=== PATIENT | male | born 1950 | race Caucasian/White ===

== ENCOUNTER 2019-10-12 00:30 | Day surgery (SDC) | payer MEDICARE, SELFPAY ==
[2019-10-11 15:01] VITALS: BMI 35.5
[2019-10-12] VITALS (8 sets, daily range): BP systolic 114–143; BP diastolic 64–93; PULSE 75–117; RESP 12–20; TEMP 36.1–37.6; O2SAT 94–99
--- NOTE | 2019-10-12 08:00 | ECG_ITS ---
Measurements Intervals [place] Rate: 93 P: 42 MI: 166 QRS: -26 QRSD: 101 T: 71 QT: 355 QTc: 442 Interpretive Statements SINUS RHYTHM ATRIAL PREMATURE COMPLEX BORDERLINE T WAVE ABNORMALITY- LATERAL LEADS BORDERLINE ECG Electronically Signed On 10-12-2019 8:18:28 CDT by Chano Rico D.O.
--- NOTE | 2019-10-12 08:28 | WPDANESEPPF ---
Anes - Initial Pre Proc Eval Procedure: Operation Date: 10/12/19 09:30 Proposed Procedures p Repair Incarcerated Umbilical Hernia Repair - Vladimir Cannon MD Date/Time: 10/12/19 08:28 Surgeon: Vladimir Cannon MD Pre Op Diagnosis: incarcerated umbilical hernia Patient Data Age: 69 Gender: M Height: 5 ft 11 in Weight: 115.67 kg Allergies Allergy/AdvReac Type Severity Reaction Status Date / Time No Known Allergies Allergy Mild Verified 10/11/19 15:01 Home Medications Medication Instructions Recorded Confirmed Type albuterol sulfate 90 mcg/actuation 2 puff INHALATION Q4-6H PRN gm 07/27/19 10/12/19 History aerosol inhaler duloxetine 30 mg capsule,delayed 30 mg PO DAILY 07/27/19 10/12/19 History release metformin 500 mg tablet 500 mg PO BID 07/27/19 10/12/19 History mycophenolate mofetil 500 mg tablet 1,000 mg PO Q12H 07/27/19 10/12/19 History rivaroxaban 20 mg tablet 20 mg PO DAILY 07/27/19 10/12/19 History simvastatin 20 mg tablet 20 mg PO DAILY 07/27/19 10/12/19 History valacyclovir 500 mg tablet 500 mg PO DAILY 07/27/19 10/12/19 History gabapentin 300 mg capsule 900 mg PO BID cap 07/30/19 10/12/19 History cephalexin 500 mg capsule 500 mg PO BID #14 cap 10/11/19 10/12/19 Rx Patient hx anesthesia problems: none Family hx anesthesia problems: none PMFSH Past Medical History Medical History Diabetes History of blood clots History of blood transfusion History of leukemia Lung cancer SUSAN (obstructive sleep apnea) Spinal cord tumor Surgical History Surgical History History of back surgery 1974 History of knee replacement left 2002 History of knee surgery left 1977 Family History Family History Mother Family history of lung cancer, Onset Age: 66 Patient's mother is Father Patient's father is Sibling Family history of lung cancer Patient's brother is Social History Social History Smoking packs per day: 2 Smoking cigarettes per day: 40.0 Years smoked: 45 Smoking pack-years: 90.00 Smoking status: Never smoker Second hand tobacco smoke exposure: No Smoking end date: 07/18/09 Alcohol intake: current Substance use: never Anes - Eval Final PreProcedure Day of Procedure 10/12/19 08:28 Patient weight: obese Heart: regular rate and rhythm Lungs: decreased breath sounds Airway: Mallampati scale class II Neurological: alert and oriented Last oral intake: >/= 8 hours ASA classification: IV Emergent: no Anesthetic plan: proceed Anesthesia type and monitoring: general LMA and standard monitoring Informed Consent: The patient's anesthetic plan and its attendant risks and benefits were discussed with the patient/family/POA. Questions were solicited and answers provided to the satisfaction of the patient/family/POA.
[2019-10-12 08:30] LABS: Glucose Point of Care 159 (65-105)
[2019-10-12] MEDS: LACTATED RINGERS 1,000 ML 30 ML IV CONT (08:40)
[2019-10-12 08:49] LABS: Blood Urea Nitrogen 21 mg/dL (9-20); Calcium 9.2 mg/dL (8.4-10.2); Carbon Dioxide 27 mmol/L (22-30); Chloride 102 mmol/L (98-107); Estimated CRCL calculation 72 ml/min; Estimated Glomerular Filt Rate > 60; Glucose 156 mg/dL (75-110); Potassium 4.4 mmol/L (3.4-5.0); Sodium 135 mmol/L (137-145)
--- NOTE | 2019-10-12 09:28 | WPDHPUPDATE1 ---
History and Physical Update Update Date/Time: 10/12/19 09:28 History and Physical has been reviewed, including an updated exam of the patient. There are NO changes in the patient's condition. Risks, benefits, and alternatives have been discussed and questions answered. Patient agrees to proceed with procedure.
[2019-10-12] MEDS: ceFAZolin 2 GM/D5W 50 ML 2 GM/50 ML BAG IVPB (10:02)
[2019-10-12] MEDS: BUPIVACAINE/EPINEPHRINE 0.5% 30 ML VIAL 20 ML INFILTRATE (10:26)
--- NOTE | 2019-10-12 10:49 | SUR.OPER ---
Ebl=5ml
[2019-10-12 11:08] LABS: Glucose Point of Care 111 (65-105)
--- NOTE | 2019-10-12 12:45 | P.OP_ITS ---
Procedure Note - Detailed Date of procedure: 10/12/19 Pre-op diagnosis: incarcerated umbilical hernia Incarcerated umbilical hernia Post-op diagnosis: same Procedure performed: Repair incarcerated umbilical hernia Description of procedure: The patient was taken to surgery and induced into general anesthesia with laryngeal mask airway. The abdomen was prepped and draped. The proposed incision was marked along the upper margin of the umbilicus. Local anesthesia was infiltrated into the skin and the deeper subcutaneous tissues. Incision was made and deepened down to the incarcerated hernia. Using blunt and sharp dissection, I dissected the umbilical skin and the surrounding subcutaneous from the hernia sac. I then opened the sac and eventually found some necrotic omentum and properitoneal fat within the hernia. There was no evidence of bowel. I amputated the sac just above the fascial margin. The sac and its contents were discarded. There was no evidence of abscess. I then freed the edges of the hernia defect from any other tissues to facilitate closure of the hernia defect. Due to the acute inflammation I decided not to use any mesh. The hernia defect was less than 2 cm. [id number] mattress sutures of 0 Ethibond were used to close the hernia defect. Additional local was infiltrated all around the area of the repair. I then sutured the umbilical skin to the fascia with 3 0 Vicryl suture. Some subcutaneous 3 0 Vicryl sutures were then placed. Subcuticular interrupted 4 O Vicryl skin stitches were placed. The wound was dressed with Xeroform gauze fluffs and Medipore tape. The patient was awakened and taken to recovery in good condition. Anesthesia: GLMA and MAC (0.5% Marcaine with epinephrine) Surgeon: Vladimir Cannon MD [employer] Floor Finisher: Deangelo MCELROY Estimated blood loss (mL): 5 Drains: No Packing: No Pathology: none sent Complications: None Condition: stable Disposition: PACU Findings: 1.6 cm hernia defect.
== END 2019-10-12 12:59 | disposition home or self-care (01) ==
PROVIDERS: Anesthesiology; PCP Internal Medicine; Visit Provider Surgery
PROC: (CPT 49587; principal; 2019-10-12 09:30)
DX: K42.0 Umbilical hernia with obstruction, without gangrene (principal); E11.9 Type 2 diabetes mellitus without complications; G47.33 Obstructive sleep apnea (adult) (pediatric); Z85.6 Personal history of leukemia; Z79.84 Long term (current) use of oral hypoglycemic drugs; Z79.01 Long term (current) use of anticoagulants; Z86.718 Personal history of other venous thrombosis and embolism; E66.9 Obesity, unspecified; Z68.35 Body mass index [BMI] 35.0-35.9, adult; Z85.118 Personal history of other malignant neoplasm of bronchus and lung; Z87.891 Personal history of nicotine dependence
CPT/HCPCS: 49587; 36415; 80048; 93005; C9290; J0131; J0690; J2001; J2370; J2704; J3010; J7120

== ENCOUNTER → 2020-09-20 00:42 | Outpatient (CLI) | payer MEDICARE, SELFPAY ==
[2020-09-20 19:48] LABS: SARS-CoV-2 RNA PCR Negative
== END ==
PROVIDERS: PCP Internal Medicine; Visit Provider Internal Medicine Gastroenterology
DX: Z01.812 Encounter for preprocedural laboratory examination (principal); Z20.822 Contact with and (suspected) exposure to COVID-19
CPT/HCPCS: C9803; U0003; U0005

== ENCOUNTER 2020-09-24 02:01 | Day surgery (SDC) | payer MEDICARE, SELFPAY ==
[2020-09-11 09:44] VITALS: BMI 35.0
[2020-09-24 10:14] VITALS: BP 138/87; PULSE 100; RESP 18; TEMP 36.6; O2SAT 96; BMI 34.6
[2020-09-24] MEDS: LACTATED RINGERS 1,000 ML 150 ML IV CONT (10:34)
[2020-09-24 10:41] LABS: Glucose Point of Care 140 (65-105)
--- NOTE | 2020-09-24 10:55 | WPDANESEPP ---
Anes - Eval Pre Procedure Procedure: Operation Date: 09/24/20 11:30 Proposed Procedures p Screening Colonoscopy - Fritz LoliJoni Wu DO Date/Time: 09/24/20 10:55 Pre Op Diagnosis: Neoplasm Screening Patient Data Age: 70 Gender: M Height: 5 ft 11 in Weight: 112.7 kg Last Vital Signs Temp 97.8 F 09/24/20 10:14 Pulse 100 09/24/20 10:14 Resp 18 09/24/20 10:14 BP 138/87 09/24/20 10:14 Pulse Ox 96 09/24/20 10:14 Allergies Allergy/AdvReac Type Severity Reaction Status Date / Time No Known Allergies Allergy Mild Verified 09/24/20 10:08 Home Medications Medication Instructions Recorded Confirmed Type albuterol sulfate 90 mcg/actuation 2 puff INHALATION Q4-6H PRN gm 07/27/19 09/24/20 History aerosol inhaler duloxetine 30 mg capsule,delayed 30 mg PO DAILY 07/27/19 09/24/20 History release metformin 500 mg tablet 500 mg PO BID 07/27/19 09/24/20 History mycophenolate mofetil 500 mg tablet 1,000 mg PO Q12H 07/27/19 09/24/20 History rivaroxaban 20 mg tablet 20 mg PO DAILY 07/27/19 09/24/20 History simvastatin 20 mg tablet 20 mg PO DAILY 07/27/19 09/24/20 History valacyclovir 500 mg tablet 500 mg PO DAILY 07/27/19 09/24/20 History gabapentin 300 mg capsule 900 mg PO BID cap 07/30/19 09/24/20 History Laboratory Tests 09/24/20 10:31 POC Capillary Glucose 140 mg/dl H mg/dl (65-105) Patient hx anesthesia problems: none Family hx anesthesia problems: none PMFSH Past Medical History Medical History COPD (chronic obstructive pulmonary disease) Diabetes Elevated prostate specific antigen [PSA] History of blood clots History of blood transfusion History of leukemia Lung cancer SUSAN (obstructive sleep apnea) SUSAN (obstructive sleep apnea) Sleep apnea in adult Spinal cord tumor Surgical History Surgical History History of back surgery 1974 History of knee replacement left 2002 History of knee surgery left 1978 History of umbilical hernia repair incarcerated umbilical hernia 10/12/2019 Family History Family History Mother Family history of lung cancer, Onset Age: 66 Patient's mother is Father Patient's father is Sibling Family history of lung cancer Patient's brother is Social History Social History Smoking packs per day: 2 Smoking cigarettes per day: 40.0 Years smoked: 45 Smoking pack-years: 90.00 Smoking status: Former smoker Tobacco type: cigarettes Second hand tobacco smoke exposure: No Smoking end date: 07/18/09 Alcohol intake: current Drinks per week: 1 Alcohol use details: beer Substance use: never Living arrangements: with family Gender identity (if verbalized by the patient): Male Spiritual care concerns: No Exam Day of Procedure 09/24/20 10:55 Patient weight: morbidly obese Heart: regular rate and rhythm Lungs: decreased breath sounds Airway: Mallampati scale class II Neurological: alert and oriented
--- NOTE | 2020-09-24 11:02 | P.PNAN_ITS ---
Anes - Eval Final PreProcedure Day of Procedure 09/24/20 11:02 Patient weight: obese Heart: regular rate and rhythm Lungs: clear to auscultation Airway: Mallampati scale class III Neurological: alert and oriented Last oral intake: >/= 8 hours ASA classification: IV Emergent: no Anesthetic plan: proceed Anesthesia type and monitoring: general GIVS and standard monitoring Informed Consent: The patient's anesthetic plan and its attendant risks and b enefits were discussed with the patient/family/POA. Questions were solicited and answers provided to the satisfaction of the patient/family/POA.
--- NOTE | 2020-09-24 11:06 | WPDGICN ---
GI Consult Note Consult date/time: 09/24/20 11:06 HPI: Reason for visit is colonoscopy. This very pleasant gentleman seen in consultation request of the primary physician. The patient examined and chart reviewed. Impression: Screening and surveillance colonoscopy. The patient history colon polyps. DM. HTN. HLD. Lung cancer status post radiation chemotherapy. Spinal Mets. 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 Anxiety /depression. Pulmonary embolus. Neuropathy. SUSAN. Obesity. COPD. Elevated PSA. Recommendation: Colonoscopy. History: This very pleasant gentleman is a negative GI review of systems. He is here for colonoscopy. He has a history of colon polyps. Physical examination: General: very pleasant patient in no acute distress. HEENT: Head was normocephalic sclerae is clear mouth without masses neck was supple. Heart: Rate rhythm regular without S3 or S4. Lungs: CTA. Abdomen: Soft with no guarding or rigidity. Bowel sounds were active. Neurologic: Cranial nerves 2 through 12 intact. No focal defects. No clonus. Musculoskeletal system: Revealed no joint tenderness or swelling no muscle atrophy. Extremities: Reveal no significant edema. Skin: Warm and dry with normal turgor. Mental status: intact. Patient is alert and oriented. Review of Systems Review of Systems: All systems reviewed & are unremarkable except as noted in HPI and below PMFSH Past Medical History Medical History COPD (chronic obstructive pulmonary disease) Diabetes Elevated prostate specific antigen [PSA] History of blood clots History of blood transfusion History of leukemia Lung cancer SUSAN (obstructive sleep apnea) SUSAN (obstructive sleep apnea) Sleep apnea in adult Spinal cord tumor Surgical History Surgical History History of back surgery 1974 History of knee replacement left 2002 History of knee surgery left 1978 History of umbilical hernia repair incarcerated umbilical hernia 10/12/2019 Family History Family History Mother Family history of lung cancer, Onset Age: 66 Patient's mother is Father Patient's father is Sibling Family history of lung cancer Patient's brother is Social History Social History Smoking packs per day: 2 Smoking cigarettes per day: 40.0 Years smoked: 45 Smoking pack-years: 90.00 Smoking status: Former smoker Tobacco type: cigarettes Second hand tobacco smoke exposure: No Smoking end date: 07/18/09 Alcohol intake: current Drinks per week: 1 Alcohol use details: beer Substance use: never Living arrangements: with family Gender identity (if verbalized by the patient): Male Spiritual care concerns: No Meds Home Medications and Allergies Home Medications Medication Instructions Recorded Confirmed Type albuterol sulfate 90 mcg/actuation 2 puff INHALATION Q4-6H PRN gm 07/27/19 09/24/20 History aerosol inhaler duloxetine 30 mg capsule,delayed 30 mg PO DAILY 07/27/19 09/24/20 History release metformin 500 mg tablet 500 mg PO BID 07/27/19 09/24/20 History mycophenolate mofetil 500 mg tablet 1,000 mg PO Q12H 07/27/19 09/24/20 History rivaroxaban 20 mg tablet 20 mg PO DAILY 07/27/19 09/24/20 History simvastatin 20 mg tablet 20 mg PO DAILY 07/27/19 09/24/20 History valacyclovir 500 mg tablet 500 mg PO DAILY 07/27/19 09/24/20 History gabapentin 300 mg capsule 900 mg PO BID cap 07/30/19 09/24/20 History Allergies Allergy/AdvReac Type Severity Reaction Status Date / Time No Known Allergies Allergy Mild Verified 09/24/20 10:08 Vital Signs Vital Signs - 24 hr 09/24/20 10:14 Temperature 36.6 C
[2020-09-24 11:35] VITALS: BP 118/78; PULSE 84; RESP 19; O2SAT 95
[2020-09-24 11:45] VITALS: BP 113/74; PULSE 78; RESP 18; O2SAT 96
[2020-09-24 11:55] VITALS: BP 135/85; PULSE 71; RESP 18; O2SAT 94
== END 2020-09-24 12:09 | disposition home or self-care (01) ==
PROVIDERS: PCP Internal Medicine; Visit Provider Internal Medicine Gastroenterology
PROC: 0DJD8ZZ Inspection of Lower Intestinal Tract, Via Natural or Artificial Opening Endoscopic (ICD-10-PCS; CPT 45378; principal; 2020-09-24 11:30)
DX: Z12.11 Encounter for screening for malignant neoplasm of colon (principal); K57.30 Diverticulosis of large intestine without perforation or abscess without bleeding; K64.8 Other hemorrhoids; Z86.010 Personal history of colon polyps; I10 Essential (primary) hypertension; E11.40 Type 2 diabetes mellitus with diabetic neuropathy, unspecified; E78.5 Hyperlipidemia, unspecified; F41.8 Other specified anxiety disorders; J44.9 Chronic obstructive pulmonary disease, unspecified; G47.33 Obstructive sleep apnea (adult) (pediatric); E66.9 Obesity, unspecified; Z68.34 Body mass index [BMI] 34.0-34.9, adult; Z85.118 Personal history of other malignant neoplasm of bronchus and lung; Z86.711 Personal history of pulmonary embolism; Z92.3 Personal history of irradiation; Z92.21 Personal history of antineoplastic chemotherapy; Z85.6 Personal history of leukemia; Z87.891 Personal history of nicotine dependence; Z79.84 Long term (current) use of oral hypoglycemic drugs; Z79.51 Long term (current) use of inhaled steroids; Z79.01 Long term (current) use of anticoagulants
CPT/HCPCS: G0105; 82948; C9803; J2704; J7120; U0003; U0005

== ENCOUNTER → 2020-11-10 09:48 | Outpatient (CLI) | payer MEDICARE, SELFPAY ==
--- NOTE | ~2020-11-10 | XR_ITS ---
EXAMINATION: [id number] DATE: 11/10/2020 10:00 INDICATION: Pleurodynia. TECHNIQUE: A frontal view of the chest and 3 views of the left ribs were obtained. COMPARISON: Chest CT 11/29/2016 FINDINGS: There is volume loss of right hemithorax. There is a right hilar mass. No pleural effusion or pneumothorax. The heart size is normal. There is a right internal jugular port with tip in superio r vena cava. IMPRESSION: 1. No rib fracture. 2. Right hilar mass, likely malignancy and treatment change. Reviewed, dictated and finalized at location A.
== END ==
PROVIDERS: PCP Internal Medicine; Visit Provider Internal Medicine
DX: R07.81 Pleurodynia (principal); R91.8 Other nonspecific abnormal finding of lung field
CPT/HCPCS: 71101

== ENCOUNTER 2021-12-28 01:36 | Day surgery (SDC) | payer MEDICARE, SELFPAY ==
[2021-12-15 09:42] VITALS: BMI 31.4
--- NOTE | 2021-12-26 11:02 | PM.HPGS ---
History of Present Illness History of Present Illness Consent: Risks, benefits, and alternatives have been discussed and questions answered. Patient agrees to proceed with procedure. Chief complaint: nausea Narrative: Brendan Srivastava is a 71 year old male with several medical problems including the fact that he has Acute myeloblastic leukemia treated in [place]. He has a history of small cell lung cancer. He has a history of pulmonary emboli for which he takes Xarelto. Now, for the past 3 months, he has been dealing with constant nausea. The nausea comes and goes without any particular pattern. He may have it every day for while and then not have a for up to a week. He has been given anti nausea pills but does not really think they have made a difference. On a few occasions he has had emesis of some liquid but not food. He is not losing weight. He denies abdominal pain Review of Systems Review of Systems: All systems reviewed & are unremarkable except as noted in HPI and below PMFSH Past Medical History Medical History COPD (chronic obstructive pulmonary disease) Diabetes Elevated prostate specific antigen [PSA] History of blood clots History of blood transfusion History of leukemia Lung cancer SUSAN (obstructive sleep apnea) SUSAN (obstructive sleep apnea) Sleep apnea in adult Spinal cord tumor Surgical History Surgical History History of back surgery 1974 History of knee replacement left 2002 History of knee surgery left 1977 History of umbilical hernia repair incarcerated umbilical hernia 10/12/2019 Family History Family History Mother Family history of lung cancer, Onset Age: 66 Patient's mother is Father Patient's father is Sibling Family history of lung cancer Patient's brother is Social History Social History Smoking packs per day: 2 Smoking cigarettes per day: 40.0 Years smoked: 45 Smoking pack-years: 90.00 Smoking status: Former smoker Tobacco type: cigarettes Second hand tobacco smoke exposure: No Smoking end date: 07/18/09 Alcohol intake: current Drinks per week: 1 Alcohol use details: 2x montlhy Substance use: never Living arrangements: with family Gender identity (if verbalized by the patient): Male Spiritual care concerns: No Meds Home Medications and Allergies Home Medications Medication Instructions Recorded Confirmed Type albuterol sulfate 90 mcg/actuation 2 puff inhalation Q4-6H PRN 07/27/19 12/28/21 History aerosol inhaler (Ventolin HFA) Shortness Of Breath duloxetine 30 mg capsule,delayed 30 mg PO DAILY 07/27/19 12/28/21 History release mycophenolate mofetil 500 mg 500 mg PO BID 07/27/19 12/28/21 History tablet (CellCept) rivaroxaban 20 mg tablet (Xarelto) 20 mg PO DAILY 07/27/19 12/28/21 History valacyclovir 500 mg tablet 500 mg PO DAILY 07/27/19 12/28/21 History gabapentin 300 mg capsule 900 mg PO BID 07/30/19 12/28/21 History aspirin 81 mg tablet,delayed 81 mg PO DAILY 08/12/21 12/28/21 History release (Adult Low Dose Aspirin) empagliflozin 25 mg tablet 25 mg PO DAILY 08/12/21 12/28/21 History metoprolol succinate 100 mg 100 mg PO DAILY 08/12/21 12/28/21 History tablet,extended release 24 hr rosuvastatin 20 mg tablet 20 mg PO DAILY 08/12/21 12/28/21 History spironolactone 25 mg tablet 12.5 mg PO DAILY 08/12/21 12/28/21 History cyclosporine 0.05 % eye drops in a 1 drp EACH EYE DAILY 12/15/21 12/28/21 History dropperette (Restasis) finasteride 5 mg tablet 5 mg PO DAILY 12/15/21 12/28/21 History furosemide 20 mg tablet (Lasix) 20 mg PO DAILY PRN Edema 12/15/21 12/28/21 History sacubitril 49 mg-valsartan 51 mg 0.5 tablet PO BID 12/15/21 12/28/21 H
[2021-12-28 08:10] VITALS: BP 125/72; PULSE 65; RESP 18; TEMP 36.1; O2SAT 97; BMI 32.3
[2021-12-28 08:20] LABS: Glucose Point of Care 138 mg/dl (65-105)
[2021-12-28] MEDS: LACTATED RINGERS 1,000 ML 150 ML IV CONT (08:33)
--- NOTE | 2021-12-28 09:03 | WPDANESEPPF ---
Anes - Initial Pre Proc Eval Procedure: Operation Date: 12/28/21 09:30 Proposed Procedures p Esophagogastroduodenoscopy - Brendan Baer MD Date/Time: 12/28/21 09:03 Surgeon: Brendan Baer MD Pre Op Diagnosis: nausea Patient Data Age: 71 Gender: M Height: 1.8 m Weight: 105 kg Last Vital Signs Temp 36.1 C L 12/28/21 08:10 Pulse 65 12/28/21 08:10 Resp 18 12/28/21 08:10 BP 125/72 12/28/21 08:10 Pulse Ox 97 12/28/21 08:10 O2 Del Method Room Air 12/28/21 08:10 Allergies Allergy/AdvReac Type Severity Reaction Status Date / Time No Known Allergies Allergy Mild Verified 12/28/21 08:19 Home Medications Medication Instructions Recorded Confirmed Type albuterol sulfate 90 mcg/actuation 2 puff inhalation Q4-6H PRN 07/27/19 12/28/21 History aerosol inhaler (Ventolin HFA) Shortness Of Breath duloxetine 30 mg capsule,delayed 30 mg PO DAILY 07/27/19 12/28/21 History release mycophenolate mofetil 500 mg 500 mg PO BID 07/27/19 12/28/21 History tablet (CellCept) rivaroxaban 20 mg tablet (Xarelto) 20 mg PO DAILY 07/27/19 12/28/21 History valacyclovir 500 mg tablet 500 mg PO DAILY 07/27/19 12/28/21 History gabapentin 300 mg capsule 900 mg PO BID 07/30/19 12/28/21 History aspirin 81 mg tablet,delayed 81 mg PO DAILY 08/12/21 12/28/21 History release (Adult Low Dose Aspirin) empagliflozin 25 mg tablet 25 mg PO DAILY 08/12/21 12/28/21 History metoprolol succinate 100 mg 100 mg PO DAILY 08/12/21 12/28/21 History tablet,extended release 24 hr rosuvastatin 20 mg tablet 20 mg PO DAILY 08/12/21 12/28/21 History spironolactone 25 mg tablet 12.5 mg PO DAILY 08/12/21 12/28/21 History cyclosporine 0.05 % eye drops in a 1 drp EACH EYE DAILY 12/15/21 12/28/21 History dropperette (Restasis) finasteride 5 mg tablet 5 mg PO DAILY 12/15/21 12/28/21 History furosemide 20 mg tablet (Lasix) 20 mg PO DAILY PRN Edema 12/15/21 12/28/21 History sacubitril 49 mg-valsartan 51 mg 0.5 tablet PO BID 12/15/21 12/28/21 History tablet Laboratory Tests 12/28/21 08:17 POC Capillary Glucose 138 mg/dl H mg/dl (65-105) Patient hx anesthesia problems: none Family hx anesthesia problems: none Results Review: All pre-operative results and documents have been reviewed as part of the pre-operative evaluation. [facility] Past Medical History Medical History COPD (chronic obstructive pulmonary disease) Diabetes Elevated prostate specific antigen [PSA] History of blood clots History of blood transfusion History of leukemia Lung cancer SUSAN (obstructive sleep apnea) SUSAN (obstructive sleep apnea) Sleep apnea in adult Spinal cord tumor Surgical History Surgical History History of back surgery 1974 History of knee replacement left 2002 History of knee surgery left 1978 History of umbilical hernia repair incarcerated umbilical hernia 10/12/2019 Family History Family History Mother Family history of lung cancer, Onset Age: 66 Patient's mother is Father Patient's father is Sibling Family history of lung cancer Patient's brother is Social History Social History Smoking packs per day: 2 Smoking cigarettes per day: 40.0 Years smoked: 45 Smoking pack-years: 90.00 Smoking status: Former smoker Tobacco type: cigarettes Second hand tobacco smoke exposure: No Smoking end date: 07/18/09 Alcohol intake: current Drinks per week: 1 Alcohol use details: 2x montlhy Substance use: never Living arrangements: with family Gender identity (if verbalized by the patient): Male Spiritual care concerns: No Anes - Eval Final PreProcedure Day of Procedure 12/28/21 09:03 Patient
[2021-12-28 09:40] VITALS: BP 155/93; PULSE 77; RESP 25; O2SAT 100
[2021-12-28 09:50] VITALS: BP 128/71; PULSE 68; RESP 21; O2SAT 100
[2021-12-28 10:00] VITALS: BP 129/82; PULSE 58; RESP 22; O2SAT 100
== END 2021-12-28 10:07 | disposition home or self-care (01) ==
PROVIDERS: PCP Internal Medicine; Visit Provider Internal Medicine Gastroenterology
PROC: 0DJ08ZZ Inspection of Upper Intestinal Tract, Via Natural or Artificial Opening Endoscopic (ICD-10-PCS; CPT 43235; principal; 2021-12-28 09:30)
DX: K21.9 Gastro-esophageal reflux disease without esophagitis (principal); K22.70 Barrett's esophagus without dysplasia; K29.70 Gastritis, unspecified, without bleeding; C92.00 Acute myeloblastic leukemia, not having achieved remission; J44.9 Chronic obstructive pulmonary disease, unspecified; E11.9 Type 2 diabetes mellitus without complications; G47.33 Obstructive sleep apnea (adult) (pediatric); Z85.118 Personal history of other malignant neoplasm of bronchus and lung; Z86.711 Personal history of pulmonary embolism; Z87.891 Personal history of nicotine dependence; E66.9 Obesity, unspecified; Z68.32 Body mass index [BMI] 32.0-32.9, adult; Z79.51 Long term (current) use of inhaled steroids; Z79.01 Long term (current) use of anticoagulants; Z79.82 Long term (current) use of aspirin; Z79.84 Long term (current) use of oral hypoglycemic drugs
CPT/HCPCS: 43239; 82948; 87081; 88305; J2704; J7120

== ENCOUNTER 2024-03-05 01:42 | Day surgery (SDC) | payer MEDICARE, SELFPAY ==
[2024-02-15 11:16] VITALS: BMI 31.8
--- NOTE | 2024-02-17 08:34 | SUR.PREOP ---
Spoke with patient regarding the medication Xarelto. Pt. verbalizes understanding that the last dose of Xarelto is to be taken on 03/02/2024 and the Endoscopist will instruct them when to restart after the procedure.
[2024-03-05 12:10] VITALS: BP 117/67; PULSE 66; RESP 16; TEMP 35.7; O2SAT 97; BMI 32.4
[2024-03-05] MEDS: LACTATED RINGERS 1,000 ML 150 ML IV CONT (12:39)
--- NOTE | 2024-03-05 12:50 | WPDANESEPPF ---
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 Patient Data Age: 73 Gender: M Height: 1.8 m Weight: 105.6 kg Last Vital Signs Temp 96.3 F L 03/05/24 12:10 Pulse 66 03/05/24 12:10 Resp 16 03/05/24 12:10 BP 117/67 03/05/24 12:10 Pulse Ox 97 03/05/24 12:10 O2 Del Method Room Air 03/05/24 12:10 Allergies Allergy/AdvReac Type Severity Reaction Status Date / Time No Known Allergies Allergy Mild Verified 03/05/24 12:19 Home Medications Medication Instructions Recorded Confirmed Type duloxetine 30 mg capsule,delayed 30 mg PO DAILY 07/27/19 03/05/24 History release mycophenolate mofetil 500 mg 500 mg PO BID 07/27/19 02/15/24 History tablet (CellCept) rivaroxaban 20 mg tablet (Xarelto) 20 mg PO HS 07/27/19 03/05/24 History valacyclovir 500 mg tablet 500 mg PO DAILY 07/27/19 03/05/24 History gabapentin 300 mg capsule 900 mg PO BID 07/30/19 03/05/24 History aspirin 81 mg tablet,delayed 81 mg PO DAILY 08/12/21 03/05/24 History release (Adult Low Dose Aspirin) empagliflozin 25 mg tablet 12.5 mg PO DAILY 08/12/21 03/05/24 History spironolactone 25 mg tablet 12.5 mg PO DAILY 08/12/21 03/05/24 History cyclosporine 0.05 % eye drops in a 1 drp EACH EYE BID 12/15/21 03/05/24 History dropperette (Restasis) finasteride 5 mg tablet 5 mg PO DAILY 12/15/21 03/05/24 History sacubitril 49 mg-valsartan 51 mg 0.5 tablet PO BID 12/15/21 03/05/24 History tablet azelastine 137 mcg (0.1 %) nasal 2 spray intranasal Q12H #30 mL 02/02/22 03/05/24 Rx spray fluticasone propionate 50 2 spray intranasal DAILY #18 mL 08/24/22 03/05/24 Rx mcg/actuation nasal spray,suspension (Flonase Allergy Relief) ondansetron HCl 8 mg tablet 8 mg PO Q8H PRN nausea and 12/10/22 03/05/24 Rx vomiting #7 tabs glimepiride 2 mg tablet 2 mg PO QAM #90 tabs 09/14/23 03/05/24 Rx albuterol sulfate 90 mcg/actuation 1 inh inhalation QID PRN Shortness 02/15/24 03/05/24 History aerosol inhaler Of Breath Or Wheezing calcium polycarbophil 625 mg 1,250 mg PO BID 02/15/24 03/05/24 History tablet (Fiber (calcium polycarbophil)) fluticasone 250 mcg-salmeterol 50 1 inh inhalation Q12H 02/15/24 03/05/24 History mcg/dose blistr powdr for inhalation (Wixela Inhub) metoprolol succinate 200 mg 100 mg PO DAILY 02/15/24 02/15/24 History tablet,extended release 24 hr rosuvastatin 40 mg tablet 40 mg PO HS 02/15/24 03/05/24 History Patient hx anesthesia problems: none Family hx anesthesia problems: none Results Review: All pre-operative results and documents have been reviewed as part of the pre-operative evaluation. [facility] Past Medical History Medical History Congestive heart failure COPD (chronic obstructive pulmonary disease) Diabetes Elevated prostate specific antigen [PSA] History of blood clots History of blood transfusion History of leukemia Lung cancer SUSAN (obstructive sleep apnea) SUSAN (obstructive sleep apnea) Sleep apnea in adult Spinal cord tumor Surgical History Surgical History History of back surgery 1974 History of knee replacement left 2002 History of knee surgery left 1978 History of umbilical hernia repair incarcerated umbilical hernia 10/12/2019 Family History Family History Mother Family history of lung cancer, Onset Age: 66 Patient's mother is Father Patient's father is Sibling Family history of lung cancer Patient's brother is Social History Social History Georgette
--- NOTE | 2024-03-05 13:03 | PM.HPGS ---
History of Present Illness History of Present Illness Consent: Risks, benefits, and alternatives have been discussed and questions answered. Patient agrees to proceed with procedure. 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 Narrative: Brendan Srivastava is a 73 year old male with early's in 2021, asymptomatic Review of Systems Review of Systems: All systems reviewed & are unremarkable except as noted in HPI and below PMFSH Past Medical History Medical History (Updated 03/05/24 @ 13:03 by John Mandujano MD) Early esophagus Congestive heart failure COPD (chronic obstructive pulmonary disease) Diabetes Elevated prostate specific antigen [PSA] History of blood clots History of blood transfusion History of leukemia Lung cancer SUSAN (obstructive sleep apnea) SUSAN (obstructive sleep apnea) Sleep apnea in adult Spinal cord tumor Surgical History Surgical History History of back surgery 1974 History of knee replacement left 2002 History of knee surgery left 1977 History of umbilical hernia repair incarcerated umbilical hernia 10/12/2019 Family History Family History Mother Family history of lung cancer, Onset Age: 66 Patient's mother is Father Patient's father is Sibling Family history of lung cancer Patient's brother is Social History Social History Smoking packs per day: 2 Smoking cigarettes per day: 40.0 Years smoked: 43 Smoking pack-years: 86.00 Smoking status: Former smoker Tobacco type: cigarettes Second hand tobacco smoke exposure: No Smoking end date: 07/18/09 Alcohol intake: former Drinks per week: 1 Alcohol use details: 2x montlhy Substance use: never Substance use type: does not use Lack of Transportation: No Lack of Food: Never True Current Housing: I Have Housing Concerned About Future Housing: No Difficulty Paying Gas/Electric Bills: No Difficulty Paying for Meds: YES Currently Unemployed: No Education: High School Diploma/GED Difficulty w/ Childcare or Family Care: No Living arrangements: with family Occupation/Education: retired Gender identity (if verbalized by the patient): Male Spiritual care concerns: No Meds Home Medications and Allergies Home Medications Medication Instructions Recorded Confirmed Type duloxetine 30 mg capsule,delayed 30 mg PO DAILY 07/27/19 03/05/24 History release mycophenolate mofetil 500 mg 500 mg PO BID 07/27/19 02/15/24 History tablet (CellCept) rivaroxaban 20 mg tablet (Xarelto) 20 mg PO HS 07/27/19 03/05/24 History valacyclovir 500 mg tablet 500 mg PO DAILY 07/27/19 03/05/24 History gabapentin 300 mg capsule 900 mg PO BID 07/30/19 03/05/24 History aspirin 81 mg tablet,delayed 81 mg PO DAILY 08/12/21 03/05/24 History release (Adult Low Dose Aspirin) empagliflozin 25 mg tablet 12.5 mg PO DAILY 08/12/21 03/05/24 History spironolactone 25 mg tablet 12.5 mg PO DAILY 08/12/21 03/05/24 History cyclosporine 0.05 % eye drops in a 1 drp EACH EYE BID 12/15/21 03/05/24 History dropperette (Restasis) finasteride 5 mg tablet 5 mg PO DAILY 12/15/21 03/05/24 History sacubitril 49 mg-valsartan 51 mg 0.5 tablet PO BID 12/15/21 03/05/24 History tablet azelastine 137 mcg (0.1 %) nasal 2 spray intranasal Q12H #30 mL 02/02/22 03/05/24 Rx spray fluticasone propionate 50 2 spray intranasal DAILY #18 mL 08/24/22 03/05/24 Rx mcg/actuation nasal spray,suspension (Flonase Allergy Relief) ondansetron HCl 8 mg tablet 8 mg PO Q8H PRN nausea and 12/10/22 03/05/24 Rx vomiting #7 tabs glimepiride 2 mg tablet 2 mg PO QAM #90 tabs 09/14/23 03/05/24 Rx albuterol sulfate 90 mcg/actuation 1 inh inhalation QID PRN Shortness 02/15/24 03/05/24 History aerosol
[2024-03-05 13:21] VITALS: BP 118/76; PULSE 68; RESP 24; O2SAT 95
[2024-03-05 13:31] VITALS: BP 105/65; PULSE 67; RESP 22; O2SAT 97
[2024-03-05 13:41] VITALS: BP 102/64; PULSE 64; RESP 23; O2SAT 98
[2024-03-05 13:48] LABS: Glucose Point of Care 119 mg/dl (65-105)
== END 2024-03-05 13:52 | disposition home or self-care (01) ==
PROVIDERS: PCP Internal Medicine; Visit Provider Internal Medicine Gastroenterology
PROC: 0DJ08ZZ Inspection of Upper Intestinal Tract, Via Natural or Artificial Opening Endoscopic (ICD-10-PCS; CPT 43235; principal; 2024-03-05 13:30)
DX: K22.70 Barrett's esophagus without dysplasia (principal); K29.50 Unspecified chronic gastritis without bleeding; E11.9 Type 2 diabetes mellitus without complications; I50.9 Heart failure, unspecified; J44.9 Chronic obstructive pulmonary disease, unspecified; G47.33 Obstructive sleep apnea (adult) (pediatric); E66.9 Obesity, unspecified; Z68.32 Body mass index [BMI] 32.0-32.9, adult; Z79.01 Long term (current) use of anticoagulants; Z79.82 Long term (current) use of aspirin; Z79.84 Long term (current) use of oral hypoglycemic drugs; Z79.51 Long term (current) use of inhaled steroids; Z98.890 Other specified postprocedural states; Z98.1 Arthrodesis status; Z87.891 Personal history of nicotine dependence; Z85.6 Personal history of leukemia; Z86.718 Personal history of other venous thrombosis and embolism; Z85.118 Personal history of other malignant neoplasm of bronchus and lung; Z86.2 Personal history of diseases of the blood and blood-forming organs and certain disorders involving the immune mechanism; Z80.1 Family history of malignant neoplasm of trachea, bronchus and lung
CPT/HCPCS: 43239; 82948; 88305; J2704; J7120

== ENCOUNTER 2024-08-29 09:39 | Emergency (ER) | payer MEDICARE, SELFPAY ==
[2024-08-29] VITALS (9 sets, daily range): BP systolic 77–143; BP diastolic 54–74; PULSE 90–114; RESP 20–29; TEMP 36.8; O2SAT 91–95
--- NOTE | ~2024-08-29 | XR_ITS ---
EXAMINATION: XR chest 2V DATE: 08/29/2024 10:29 INDICATION: Shortness of breath. Mid chest pain. TECHNIQUE: Frontal and lateral views of the chest were obtained. COMPARISON: Chest CT 11/29/2016, chest single view 11/10/2020 FINDINGS: There is volume loss of right hemithorax with airspace opacities in right perihilar region, consistent with radiation pneumonitis. There are lucencies in the lungs, consistent with emphysema. There is a small loculated right pleural effusion. No pneumothorax. The heart size is normal. IMPRESSION: 1. Small loculated right pleural effusion. 2. Airspace opacities in right perihilar region with volume loss, consistent with radiation pneumonit is. 3. Emphysema. Reviewed, dictated and finalized at location A. UCTION SUPERVISOR OFF SHIFT IMPRESSION: 1. Small loculated right pleural effusion. 2. Airspace opacities in right perihilar region with volume loss, consistent wi th radiation pneumonitis. 3. Emphysema.
--- NOTE | 2024-08-29 09:45 | ECG_ITS ---
Test Date: 2024-08-29 09:49:09 Measurements Intervals [place] Rate: 114 P: 19 VA: 181 QRS: -61 QRSD: 102 T: 73 QT: 300 QTc: 415 Interpretive Statements SINUS TACHYCARDIA LEFT ANTERIOR FASCICULAR BLOCK BORDERLINE ST-T WAVE ABNORMALITY- HIGH LATERAL LEADS BASELINE ARTIFACT- I, III, AVR, AVL, V4-V6 ABNORMAL ECG No previous ECG available for comparison Electronically Signed On 08-29-2024 15:41:28 [employer] by Chano Rico D.O.
[2024-08-29 10:18] LABS: Basophils Percent Auto 0.3 % (0.2-1.2); Hematocrit 43.8 % (42.0-52.0); Hemoglobin 14.5 g/dL (14.0-18.0); Immature Granulocyte Absolute 0.07 K/mm3 (0.00-0.031); Immature Granulocyte Percent A 0.5 % (0-0.5); Lymphocytes Absolute Auto 1.35 K/mm3 (0.9-3.2); Lymphocytes Percent Auto 9.1 % (18.3-44.2); Mean Corpuscular HGB Conc 33.1 g/dl (32-36); Mean Corpuscular Volume 102.8 fl (80-100); Mean Platelet Volume 8.9 fl (7.4-10.4); Monocytes Absolute Auto 0.8 K/mm3 (0.1-0.6); Monocytes Percent Auto 5.3 % (2.6-8.5); Neutrophils Absolute Auto 12.6 K/mm3 (1.3-6.7); Neutrophils Percent Auto 84.8 % (45.5-73.1); Platelet Count Result 305 k/mm3 (150-375); Red Blood Count 4.26 M/mm3 (4.6-6.20); Red Cell Distribution Width 15.2 % (11.5-14.5); White Blood Count 14.9 K/mm3 (4.5-10.0)
--- NOTE | 2024-08-29 10:22 | ED_ITS ---
HPI - SOB/Dyspnea General Chief Complaint: Shortness of Breath/Dyspnea Stated Complaint: r sided pain Time Seen by Provider: 08/29/24 10:12 History of Present Illness HPI Narrative: Pt presents with shortness of breath and right sided chest and neck pain for 4 days. Pt denies fever. Pt has been coughing. Pt says the pain is in his lateral right chest and radiated up into neck and down into right abdomen. It has been persistent but waxes and wanes in severity and seems to be worse with coughing or movement. Related Data Home Medications ?Medication ?Instructions ?Recorded ?Confirmed ?Last Taken ?Type duloxetine 30 mg capsule,delayed 30 mg PO DAILY 07/27/19 03/28/24 Unknown History release mycophenolate mofetil 500 mg 500 mg PO BID 07/27/19 03/28/24 Unknown History tablet (CellCept) rivaroxaban 20 mg tablet (Xarelto) 20 mg PO HS 07/27/19 03/28/24 09/20/20 History valacyclovir 500 mg tablet 500 mg PO DAILY 07/27/19 03/28/24 03/04/24 History gabapentin 300 mg capsule 900 mg PO BID 07/30/19 03/28/24 09/24/20 History aspirin 81 mg tablet,delayed 81 mg PO DAILY 08/12/21 03/28/24 Unknown History release (Adult Low Dose Aspirin) empagliflozin 25 mg tablet 12.5 mg PO DAILY 08/12/21 03/28/24 03/05/24 History spironolactone 25 mg tablet 12.5 mg PO DAILY 08/12/21 03/28/24 Unknown History cyclosporine 0.05 % eye drops in a 1 drp EACH EYE BID 12/15/21 03/28/24 Unknown History dropperette (Restasis) finasteride 5 mg tablet 5 mg PO DAILY 12/15/21 03/28/24 Unknown History sacubitril 49 mg-valsartan 51 mg 0.5 tablet PO BID 12/15/21 03/28/24 03/05/24 History tablet albuterol sulfate 90 mcg/actuation 1 inh inhalation QID PRN Shortness 02/15/24 03/28/24 Unknown History aerosol inhaler Of Breath Or Wheezing calcium polycarbophil 625 mg 1,250 mg PO BID 02/15/24 03/28/24 Unknown History tablet (Fiber (calcium polycarbophil)) fluticasone 250 mcg-salmeterol 50 1 inh inhalation Q12H 02/15/24 03/28/24 Unknown History mcg/dose blistr powdr for inhalation (Wixela Inhub) metoprolol succinate 200 mg 100 mg PO DAILY 02/15/24 03/28/24 Unknown History tablet,extended release 24 hr rosuvastatin 40 mg tablet 40 mg PO HS 02/15/24 03/28/24 Unknown History Allergies Allergy/AdvReac Type Severity Reaction Status Date / Time No Known Allergies Allergy Mild Verified 08/29/24 10:00 Review of Systems 2 Review of Systems: All systems reviewed & are unremarkable except as noted in HPI and below PMFSH Past Medical History Medical History (Updated 08/29/24 @ 14:41 by Adiel Arnold III, DO) [place]ay esophagus Congestive heart failure Elevated prostate specific antigen [PSA] SUSAN (obstructive sleep apnea) COPD (chronic obstructive pulmonary disease) SUSAN (obstructive sleep apnea) Lung cancer Spinal cord tumor History of leukemia Diabetes History of blood transfusion History of blood clots Sleep apnea in adult Surgical History Surgical History History of umbilical hernia repair incarcerated umbilical hernia 10/12/2019 History of knee replacement left 2002 History of knee surgery left 1977 History of back surgery 1974 Family History Family History Mother Family history of lung cancer, Onset Age: 66 Patient's mother is Father Patient's father is Sibling Family history of lung cancer Patient's brother is Social History Social History Smoking packs per day: 2 Smoking cigarettes per day: 40.0 Years smoked: 43 Smoking pack-years: 86.00 Smoking status: Former smoker Tobacco type: cigarettes Second hand tobacco smoke exposure: No Smoking end date: 07/18/09 Alcohol intake: former Drinks per week: 1 Alcohol use details: 2x montlhy Substance use: never Substance use type: does not use Lack of Transportation: No Lack of Food: Never True Current Housing: I Have Housing Concerned About Future Housing: No Difficulty Paying Gas/Electric Bills: No Difficulty Paying for Meds: YES Currently Unemployed: No Education: High School Diploma/GED Difficulty w/ Childcare or Family Care: No Living arrangements: with family Occupation/Education: retired Gender identity (if verbalized by the patient): Male Spiritual care concerns: No Exam 2 Const: General: ill appearing (tachypneic) Nutritional Appearance: well nourished Orientation/consciousness: patient oriented x3 Limitations: no limitations Eyes: EOM: EOMs intact bilaterally Neck: Neck: normal visual inspection Chest: Chest palpation & inspection: tenderness (tender to right chest with light palpation) Resp: Effort & Inspection: tachypneic Auscultation: wheezes Cardio: Rate: tachycardic Rhythm: regular rhythm GI: GI Palp: Yes Soft to palpation and Yes Tenderness to palpation present (GI) (very slight right lateral wall abdominal tenderness) Auscultation: n ormal bowel sounds Back/Spine/Pelvis: Back: no CVA tenderness Skin: General skin exam: normal color Rashes: no rashes Wounds: no wounds Neuro: General: patient oriented x3, moves all extremities and no focal motor deficits Cranial nerves: Yes Nystagmus not present Speech: normal speech Extrem: General: normal to inspection and no clubbing, cyanosis or edema Psych: Mental Status: mental status grossly normal Affect: normal affect Attitude: cooperative Course Vital Signs Vital signs: Vital Signs Temperature 98.2 F 08/29/24 09:43 Pulse Rate 114 H 08/29/24 09:43 Respiratory Rate 29 H 08/29/24 09:43 Blood Pressure 143/74 H 08/29/24 09:43 Pulse Oximetry 95 08/29/24 09:43 Oxygen Delivery Room Air 08/29/24 09:43 Temperature 98.2 F 08/29/24 09:43 Pulse Rate 91 08/29/24 14:24 Respiratory Rate 25 H 08/29/24 14:24 Blood Pressure 89/59 L 08/29/24 14:24 Pulse Oximetry 91 08/29/24 14:24 Oxygen Delivery Nasal Cannula 08/29/24 10:09 Oxygen Flow Rate 2 08/29/24 10:09 MDM - SOB/Dyspnea MDM Narrative Medical decision making narrative: Pt presents with right sided CP and SOB for several days. Pt has Hx of lung CA. Will get cxr and labs to rule out pneumonia and likely CT to rule out PE if renal function permits. Will give some morphine for what seems like chest wall pain. ekg non acute. Pt feels much better. Pt has loculated effusion on cxr. Pt BP is improved after fluid and says he runs in low 90's baseline. oxygen 92- 93% on RA. Offered hospital admission but pt declines. would like something for pain to go home on. Pt will return if worse. Lab Data 08/29/24 10:11 08/29/24 10:11 Labs: Lab Results 08/29/24 08/29/24 Range/Units 10:11 10:36 WBC 14.9 H (4.5-10.0) K/mm3 RBC 4.26 L (4.6-6.20) M/mm3 Hgb 14.5 (14.0-18.0) g/dL Hct 43.8 (42.0-52.0) % MCV 102.8 H (80-100) fl MCH 34.0 (26-34) pg MCHC 33.1 (32-36) g/dl RDW 15.2 H (11.5-14.5) % Plt Count 305 (150-375) k/mm3 MPV 8.9 (7.4-10.4) fl Immature Gran % (Auto) 0.5 (0-0.5) % Neut % (Auto) 84.8 H (45.5-73.1) % Lymph % (Auto) 9.1 L (18.3-44.2) % [place] % (Auto) 5.3 (2.6-8.5) % Eos % (Auto) 0.0 (0-4.4) % Baso % (Auto) 0.3 (0.2-1.2) % Lymph # (Auto) 1.35 (0.9-3.2) K/mm3 [place] # (Auto) 0.8 H (0.1-0.6) K/mm3 Eos # (Auto) 0.0 (0-0.3) K/mm3 Baso # (Auto) 0.0 (0.0-0.1) K/mm3 Abs Immat Gran (auto) 0.07 H (0.00-0.031) K/mm3 Absolute Neuts (auto) 12.6 H (1.3-6.7) K/mm3 Absolute Nucleated RBC 0.000 (0.0-0.012) K/mm3 Nucleated RBC % 0.0 (0.0-0.2) % Sodium 137 (137-145) mmol/L Potassium 4.2 (3.4-5.0) mmol/L Chloride 101 (98-107) mmol/L Carbon Dioxide 19 L (22-30) mmol/L Anion Gap 17 H (4-12) mmol/L BUN 31 H D (9-20) mg/dL Creatinine 1.30 (0.7-1.3) mg/dL Estim Creat Clear Calc 54 ml/min Estimated GFR 54 L (59 - ) Glucose 188 H (65-110) mg/dL Calcium 9.0 (8.4-10.2) mg/dL Total Bilirubin 0.9 (0.2-1.3) mg/dL AST 23 (17-59) U/L ALT 16 (6-50) U/L Alkaline Phosphatase 61 (38-126) U/L Troponin I < 0.012 (0.000-0.034) ng/mL NT-Pro-B Natriuret Pep 341 H (19.9-100) pg/mL Total Protein 8.0 (6.3-8.2) g/dL Albumin 3.9 (3.5-5.1) g/dL Influenza A (RT-PCR) Negative (Negative) Influenza B (RT-PCR) Negative (Negative) RSV (RT-PCR) Negative (Negative) SARS-CoV-2 RNA (RT-PCR) Negative (Negative) Discharge Plan Discharge Clinical Impression: Chest wall pain, Hypoxia Patient Disposition: Home, Self-Care Condition: Improved Instructions: Antibiotic Form, Chest Wall Pain (ED) Patient Language: Hungarian Prescriptions: New hydrocodone-acetaminophen 5-325 mg tablet 1 tablet PO Q6H PRN (Reason: pain) Qty: 14 0RF No Action spironolactone 25 mg tablet 12.5 mg PO DAILY aspirin [Adult Low Dose Aspirin] 81 mg tablet,delayed release (DR/EC) 81 mg PO DAILY empagliflozin 25 mg tablet 12.5 mg PO DAILY mycophenolate mofetil [CellCept] 500 mg tablet 500 mg PO BID duloxetine 30 mg capsule,delayed release(DR/EC) 30 mg PO DAILY valacyclovir 500 mg tablet 500 mg PO DAILY Xarelto 20 mg tablet 20 mg PO HS gabapentin 300 mg capsule 900 mg PO BID azelastine 137 mcg (0.1 %) aerosol,spray 2 spray intranasal Q12H Qty: 30 5RF Rx Instructions: administer into each nostril fluticasone propionate [Flonase Allergy Relief] 50 mcg/actuation spray,suspension 2 spray intranasal DAILY Qty: 18 4RF Rx Instructions: administer into each nostril finasteride 5 mg tablet 5 mg PO DAILY cyclosporine [Restasis] 0.05 % dropperette 1 drp EACH EYE BID sacubitril-valsartan 49-51 mg Tablet 0.5 tablet PO BID fluticasone propion-salmeterol [Wixela Inhub] 250-50 mcg/dose Blister With Device 1 inh INHALATION Q12H metoprolol succinate 200 mg Tablet Extended Release 24 Hr 100 mg PO DAILY calcium polycarbophil [Fiber (calcium polycarbophil)] 625 mg Tablet 1,250 mg PO BID albuterol sulfate 90 mcg/actuation Hfa Aerosol Inhaler 1 inh INHALATION QID PRN (Reason: Shortness Of Breath Or Wheezing) rosuvastatin 40 mg Tablet 40 mg PO HS pantoprazole 40 mg tablet,delayed release (DR/EC) 40 mg PO .daily Qty: 30 5RF ondansetron HCl 8 mg tablet 8 mg PO Q8H PRN (Reason: nausea and vomiting) Qty: 7 0RF glimepiride 2 mg tablet 2 mg PO QAM Qty: 90 2RF Rx Instructions: administer with breakfast Follow-up/Referrals: Anastacio Velasquez DO [Primary Care Provider] -
[2024-08-29 10:28] LABS: Alanine Aminotransferase 16 U/L (6-50); Albumin Level 3.9 g/dL (3.5-5.1); Alkaline Phosphatase 61 U/L (38-126); Anion Gap 17 mmol/L (4-12); Aspartate Amino Transferase 23 U/L (17-59); Bilirubin,Total 0.9 mg/dL (0.2-1.3); Blood Urea Nitrogen 31 mg/dL (9-20); Carbon Dioxide 19 mmol/L (22-30); Chloride 101 mmol/L (98-107); Estimated CRCL calculation 54 ml/min; Estimated Glomerular Filt Rate 54; Glucose 188 mg/dL (65-110); Potassium 4.2 mmol/L (3.4-5.0); Sodium 137 mmol/L (137-145)
[2024-08-29] MEDS: MORPHINE SULFATE (*CRX) 4 MG/ML INJ IV PUSH (10:38)
--- OUTSIDE RECORDS SUMMARY | 2024-08-29 10:42 | XMS_ITS | Encounter Summary ---
Author Organization [facility] Address [address] [place] [address] Care Team Providers Care Piano Accompanist Name Role Phone Aquilino Jerry DO Primary Care Provider [phone] Encounter Details Date Type Department Care Team (Late st Contact Info) Description 04/06/2018 Lab Requisition [facility] [address] [place] [address] Vladimir Eduardo MD [address] [place] [address] Social History Tobacco Use Types Packs/Day Years Used Date Smoking Tobacco: Never Assessed Sex and Gender Information Value Date Recorded Sex Assigned at Not on file Gender Identity Not on file Sexual Orientation Not on file documented as of this encounter Plan of Treatment Not on file documented as of this encounter Procedures Procedure Name Priority Date/Time Associated Diagnosis Comments DERMATOPATHOLOGY Routine 04/05/2018 12:0 0 AM CDT documented in this encounter Results * DERMATOPATHOLOGY (04/05/2018 12:00 AM CDT) Case Report Dermatopathology Report Case: [id number] Authorizing Provider: Vladimir Eduardo MD Collected: 04/05/2018 12:00 AM Pathologist: Darlin Bowers MD Received: 04/06/2018 11:53 AM Specimen: Skin, left aguirre 8 12:59 PM CDT DERMATOPATHOLOGY LABORATORY Final Diagnosis Specimen A. SKIN, left aguirre: BASAL CELL CARCINOMA, SUPERFICIAL MULTIFOCAL, ERODED (C44.719) 8 12:59 PM CDT DERMATOPATHOLOGY LABORATORY Clinical History R/O SCC. 8 12:59 PM CDT DERMATOPATHOLOGY LABORATORY Gross Description Specimen A: Received is one formalin filled container labeled with the patient's name and designated left aguirre. The specimen consists of a shave biopsy (2 pieces) measuring [id number] & [id number]. Jar 0. 8 12:59 PM CDT DERMATOPATHOLOGY LABORATORY Microscopic Description Specimen A. SKIN, left aguirre: The epidermis is focally eroded. Attached to the undersurface of the epidermis, there are small aggregates of basaloid cells with a high nuclear to cytoplasmic ratio and peripheral palisading. 8 12:59 PM CDT DERMATOPATHOLOGY LABORATORY Disclaimer An external and internal positive and negative controls are appropriate for the histochemical, immunohistochemical and immunofluorescence stain(s) in this case (if any), except where stated explicitly. The performance characteristics of the stain(s) cited in this report were developed and its performance characteristic determined by the Dermatopathology Laboratory at [facility]. These tests need not be, and therefore are not, approved by the [place] Food and Drug Administration. The tests are used for clinical purposes. Billing Codes Specimen Charges Stain Charges 77297 1 8 12:59 PM CDT DERMATOPATHOLOGY LABORATORY Embedded Images 12:59 PM CDT DERMATOPATHOLOGY LABORATORY Pathology/Cytolog y TISSUE SPECIMEN FROM SKIN / Unknown 04/05/2018 04/06/2018 11:53 AM CDT Vladimir Eduardo MD LAB - PATHOLOGY/CYTO LOGY ORDERABLES DERMATOPATHOLOGY LABORATORY [facility] - Department of Dermatology [facility] [facility] Lab [address] [phone] documented in this encounter Visit Diagnoses Not on filedocumented in this encounter Care Teams Piano Accompanist Relationship Specialty Start Date End Date Aquilino Jerry DO [address] [place] [address] PCP - General 12/31/21 documented as of this encounter
--- OUTSIDE RECORDS SUMMARY | 2024-08-29 10:42 | XMS_ITS | Continuity of Care Document ---
Author Organization [facility] Address [address] [address] [place] [address] Phone Care Team Providers Care Senior Analysis Specialist Name Role Phone Roberto Carlos Valenzuela MD Unavailable Unavailable Allergies, Adverse Reactions, Alerts Substance Reaction Status Criticality No Known Allergies Active No Inform ation Medications Medication Instructions Dosage Effective Dates (start - stop) Status Comments CellCept 500 mg tablet take 3 tablet by oral route 2 times every day 1500 MG - Active aspirin 81 mg tablet,delayed release take 1 tablet by oral route every day 81 MG - Active carvedilol 25 mg tablet take 1 tablet by oral route 2 times every day with food 25 MG - Active gabapentin 300 mg capsule take 1 capsule by oral route 3 times every day 300 MG - Active metformin ER 500 mg tablet,extended release 24 hr take 1 tablet by oral route once in the A.M and once in the P.M - Active simvastatin 20 mg tablet take 1 tablet b y oral route every day in the evening 20 MG - Active sulfamethoxazole 800 mg-trimethoprim 160 mg tablet take 1 tablet by oral route twice a day on Tuesday and - Active valacyclovir 500 mg tablet take 1 tablet by oral route every day 500 MG - Active Procedures Procedure Date OFFICE/OUTPATIENT VISIT EST RADEX ELBW COMPL MINIMUM 3 VIEWS 2018 OFFICE/OUTPATIENT VISIT EST OFFICE/OUTPATIENT VISIT EST RADEX KNE 3 VIEWS OFFICE/OUTPATIENT VISIT EST OFFICE/OUTPATIENT VISIT EST OFFICE/OUTPATIENT VISIT EST OFFICE/OUTPATIENT VISIT EST OFFICE/OUTPATIENT VISIT EST RADEX KNE 3 VIEWS OFFICE/OUTPATIENT VISIT EST OFFICE/OUTPATIENT VISIT EST Advance Directives Directive Yes / No Effective Date File Name No Information Encounters Encounter Description Practice Location Reason(s) For Visit Diagnoses Date Provider Providers Copied on Encounter OFFICE/OUTPA TIENT VISIT EST [facility], [address] [address], [place], [address], tel:[phone] [facility] Pain in right elbowDegenerat ncaho arthritis of finger, right 0 Nicolas Azevedo. [address] [facility], [place], [place], [id number]. tel:[phone] OFFICE/OUTPA TIENT VISIT EST [facility], [address] [address], [place], [address], tel:[phone] [facility] Degenerative arthritis of finger, rightPain in right elbow 9 Nicolas Azevedo. [address] [facility], [place], [place], [id number]. tel:[phone] OFFICE/OUTPA TIENT VISIT EST [facility], [address], [address], [place] tel:[phone] [facility] Degenerative arthritis of finger, right 9 Nicolas Azevedo. [address] [place], [place], [id number]. tel:[phone] OFFICE/OUTPA TIENT VISIT EST [facility], [address], [address], [place] tel:[phone] [facility] Left knee pain, unspecified chronicityBody mass index (BMI) 33.0-33.9, adultStatus post left knee replacement 9 Merlyn Ureña. [address] [place], [place], [id number]. tel:[phone] OFFICE/OUTPA TIENT VISIT EST [facility], [address], [address], [place] tel:[phone] [facility] Degenerative arthritis of finger, right Feb-0 9 Nicolas Azevedo. [address] [facility], [place], [place], [id number]. tel:[phone] OFFICE/OUTPA TIENT VISIT EST [facility], [address], [address], [place] tel:[phone] [facility] Degenerative arthritis of finger, right 8 Nicolas Azevedo. [address] [facility], [place], [place], [id number]. tel:[phone] OFFICE/OUTPA TIENT VISIT EST [facility], [address] [address], [place], [address], [place] tel:[phone] [facility] Degenerative arthritis of finger, right 7 Nicolas Azevedo. [address] [place], [place], [id number]. tel:[phone] OFFICE/OUTPA TIENT VISIT EST [facility], [address], [address], [place] tel:[phone] [facility] Body mass index (BMI) 33.0-33.9, adultDegenerat nacho arthritis of finger, rightOlecranon bursitis of right elbow 7 Nicolas Azevedo. [address] [place], [place], [id number]. tel:[phone] OFFICE/OUTPA TIENT VISIT EST [facility], [address] [address], [place], [address], [place] tel:[phone] [facility] Acute pain of right kneeTear of medial meniscus of right knee, current, unspecified tear type, initial encounter 7 Agapito Pagan. [address], [id number]. tel:[phone] OFFICE/OUTPA TIENT VISIT EST [facility], [address], [address], [place] tel:[phone] [facility] Osteoarthrosis , unspecified whether generalized or localized, involving lower legKnee replacement 4 Umairadryankendallrosio Niranjan. [address], [place], [place], [id number]. tel:[phone] Referring Provider: Aquilino Barnhart, [address], [place], [address] . tel:[phone] Family History Family Member Type Diagnosis Age At Onset Mother Problem (finding) malignant neoplasm of l maliha Brother Problem (finding) malignant neoplasm of l maliha Immunizations Vaccine Date Status Comments Pneumo (2 yrs or older)(PPV) administered Source: Other Provider Payers Payer name Insurance type Covered constitution party ID Anaa florence(s) Srinath Miranda O OT [id number] Social History Type Description Quantity Date Captured Comments Alcohol Use Details Unknown Caffeine Use Details Unknown Tobacco Use Status No Information Smoking Status Former smoker Sex Male Chief Complaint And Reason For Visit No Information Reason For Referral Reason For Referral No Information Plan Of Treatment Date Type Action Status Goal Lifestyle education regardin g diet completed Referral Ordered: RADEX ELBW COMPL MINIMUM 3 VIEWS RT Elbow ordered Referral Ordered: RADEX KNE 3 VIEWS RT ordered Referral Ordered: RADEX KNE 3 VIEWS LT ordered History Of Present Illness Encounter Date Complaint History Of Prese nt Illness No Information Functional Status Date Functional Assessmen t No Information Instructions Date Instruction Additional Infor mation Activity as tolerated. Related t o Degenerative arthritis of finger, right Activity as tolerated. Related t o Degenerative arthritis of finger, right Activity as tolerated. Related t o Degenerative arthritis of finger, right Lifestyle education regarding di et Related to Body mass index (BMI) 33.0-33.9, adult Activity as tolerated. Related t o Degenerative arthritis of finger, right Activity as tolerated. Related t o Degenerative arthritis of finger, right Activity as tolerated. Related t o Degenerative arthritis of finger, right Giving encouragement to exercise Related to Body mass index (BMI) 33.0-33.9, adult Discussed treatment options Rela popeye to Tear of medial meniscus of right knee, current, unspecified tear type, initial encounter Assessments Type Assessment Date assessment Pain in right elbow assessment Degenerative arthritis of finger , right Patient Care Teams Name Effective Dates (start - stop) Status Members No Information
--- OUTSIDE RECORDS SUMMARY | 2024-08-29 10:42 | XMS_ITS | Encounter Summary ---
Author Organization [facility] Address [address] [place] [address] Phone Care Team Providers Care Rubber Molder Name Role Phone Aquilino eJrry MD Primary Care Provider [phone] Lida Pagan MD Unavailable Naveen Bueno MD Unavailable [phone] Clark Adams MD Unavailable [phone] Encounter Details Date Type Department Care Team (Late st Contact Info) Description 08/29/2024 Telephone [facility] Bone Marrow Transplant [facility] [address] [place] [address] Frank Reddy RN Social History Tobacco Use Types Packs/Day Years Used Date Smoking Tobacco: Former Cigarettes 2 45 0 03/30/1965 - 03/30/2010 Smokeless Tobacco: Former Snuff, Chew AUDIT-C Answer Date Recorded Q1: How often do you have a drink containing alc ohol? 2-4 times a month 04/29/2021 Q2: How many drinks containi ng alcohol do you have on a typical day when you are drinking? 3 or 4 04/29/2021 Q3: How often do you have si x or more drinks on one occasion? 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 documented in this encounter Plan of Treatment Not on file documented as of this encounter Visit Diagnoses Not on filedocumented in this encounter Care Teams Rubber Molder Relationship Specialty Start Date End Date Aquilino Jerry MD [address] [place] [address] PCP - General 10/25/16 Lida Pagan MD [address] [facility] [address] [place] [address] Medical Oncologist/Human Resources Services Specialist Hematology and Oncology 01/10/18 Naveen Bueno MD [address] [facility] [address] [place] [address] Medical Oncologist/Human Resources Services Specialist Hematology and Oncology 01/10/18 Clark Adams MD [address] [facility] [address] [place] [address] Referring Physician Cardiology 05/11/24 documented as of this encounter
--- OUTSIDE RECORDS SUMMARY | 2024-08-29 10:42 | XMS_ITS | Clinical Summary ---
Author Organization [facility] Address [address] [place] [address] Care Team Providers Care Acid Strength Inspector Name Role Phone Aquilino Jerry MD Primary Care Provider [phone] Lida Pagan MD Unavailable Naveen Bueno MD Unavailable [phone] Clark Adams MD Unavailable Allergies No known active allergies Medications DULoxetine DR (CYMBALTA) 30 mg capsuleIndicati ons:Acute myeloid leukemia in remission (HCC) TAKE 1 CAPSULE EVERY DAY 90 capsule 1 9 Active Additional Information Patient taking differently: 30 mg oral Daily, Reported on 02/08/2023 gabapentin (NEURONTIN) 300 mg capsuleIndicati ons:Acute myeloid leukemia in remission (HCC),Status post allogeneic bone marrow transplant (HCC) Take 3 capsules (900 mg total) by mouth 2 (two) times a day 9 Active rivaroxaban (XARELTO) 20 mg tabletIndicatio ns:Hx pulmonary embolism,Acute myeloid leukemia in remission (HCC),Status post allogeneic bone marrow transplant (HCC) Take 1 tablet (20 mg total) by mouth daily 30 tablet 11 9 Active aspirin 81 mg enteric coated tablet Take 1 tablet (81 mg total) by mouth daily Active metoprolol XL (TOPROL-XL) 100 mg 24 hr tablet Take 1 tablet (100 mg total) by mouth daily 90 tablet 3 1 Active finasteride (PROSCAR) 5 mg tablet Take 1 tablet (5 mg total) by mouth daily 2 Active Restasis 0.05 % ophthalmic emulsion 1 drop 2 (two) times a day 2 Active albuterol HFA (PROVENTIL HFA,VENTOLIN HFA,PROAIR HFA) 90 mcg/actuation inhaler Inhale 2 puffs every 6 (six) hours as needed for wheezing Active pantoprazole DR (PROTONIX) 40 mg EC tabletIndicatio ns:JAMES (acute kidney injury) (HCC),Acute myeloid leukemia in remission (HCC),Status post allogeneic bone marrow transplant (HCC) Take 1 tablet (40 mg total) by mouth every morning 2 Active rosuvastatin (CRESTOR) 40 mg tablet Take 1 tablet (40 mg total) by mouth daily 90 tablet 3 2 Active empagliflozin (JARDIANCE) 25 mg tabletIndicatio ns:Acute myeloid leukemia in remission (HCC),JAMES (acute kidney injury) (HCC) Take 0.5 tablets (12.5 mg total) by mouth daily 2 Active sacubitriL-vals zachary (ENTRESTO) 24-26 mg tabletIndicatio ns:chronic heart failure Take 1 tablet by mouth 2 (two) times a day TAKE 1/2 TABLET TWICE DAILY. 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 4 Active valACYclovir (VALTREX) 500 mg tabletIndicatio ns:Prophylaxis, Medical Take 1 tablet (500 mg total) by mouth daily 90 tablet 3 4 Active mycophenolate mofetil (CELLCEPT) 500 mg tabletIndicatio ns:Acute myeloid leukemia in remission (HCC),Status post allogeneic bone marrow transplant (HCC) Take 1 tablet (500 mg total) by mouth 2 (two) times a day 120 tablet 3 5 Active Active Problems Patient Care Coordination No te Formatting of this note is d ifferent from the original. BMT Inpatient Care Coordination Overview Diagnosis AML, SCLC Floor [address]18 (9800 service) Treatment Plan Clinical Trial Reason for Admission Fever, fatigue Transplant/IEC Planning BMT/IEC Plan S/p 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 Patient Education Completed Issue to be Resolved Before Discharge Remain afebrile, inc PO Discharge Disposition Home Requests Sent to Case Management and/or Medical Assistants Post-Discharge Follow-Up Living Situation/Distance from [facility], [place] Caregiver , self Lab/Transfusion Frequency Phone: Fax: Venous Access & Care Port and PIV Local Oncologist Contact Phone: Fax: Post-Discharge Office Visit (H30) JFD 02/20 Lab/ROV 03/30 Lab/ROV Miscellaneous Notes: 02/06 Can d/c over w/e if remains afebrile, (-) cx, and increase PO Problem Noted Date Diagnosed Date Agent orange exposure 11/21/2023 Orthostasis 11/21/2023 COVID-19 08/13/2021 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 Symptoms improved after thoracentesis but have not resolved. Potentially this is due to obstructive lung disease - he had moderate obstruction on 11/2020 PFTs. We will check LVEDP at time of [facility]. Chronic systolic heart failure (CMS/HCC) 021 Assessment & Plan (04/09/2021 7:02 PM CDT): He appears euvolemic on exam. Recent CMR confirmed reduced LVEF at 30%. Etiology is unclear, though he does have history of doxorubicin chemotherapy and significant risk factors for CAD. We will proceed with [facility] to exclude coronary ischemia. We will also start entresto 24-26mg BID and metoprolol XL 25mg daily. Continue lasix 40mg daily. Assessment & Plan (03/25/2021 1:56 PM CDT): He has new dyspnea on exertion with elevation of NTproBNP c/w heart failure. On exam he does not appear to significantly volume overloaded. However, he does have a new moderate-large pleural effusion on the right side that was not present in February. I suspect this is contributing to the dyspnea. We will increase lasix to 40mg once daily in hopes of improving respiratory status and possibly diuresing off the effusion. I will confer with Dr. Pagan re: a thoracentesis, in case fluid characterization would be useful. We will also check a cardiac MRI to clarify his LV function. EF was 63% by a poor quality echo and 34% by nuclear imaging in November 2020. We will also assess for valvular abnormalities on CMR. Nuclear stress test from November was negative for ischemia. Acute pyelonephritis 02/05/2021 Type 2 diabetes mellitus 08/31/2018 Assessment & Plan (08/31/2018 12:23 AM STEAMER OPERATOR): At home on metformin 500mg bid. Last HbA1c 6.7 on 08/30/18 - LDSS - continue simva 20 Pneumonia 02/07/2018 Assessment & Plan (02/08/2018 12:38 PM CDT): WBC 16.[address] Chest with an increased right lower and middle lobe airspace opacity with a right-sided pleural effusion, consistent with superimposed pneumonia on radiation pneumonitis. New oxygen requirement. Afebrile. - continue vanc/cefe transition to po levofloxacin today - wean O2, titrate to SpO2 > 92% - f/u BCx NGTD History of pulmonary embolus (PE) 02/07/2018 Assessment & Plan (08/31/2018 12:21 AM STEAMER OPERATOR): H/o bilateral PE diagnosed in 04/2017 - continue xarelto 20mg qd Assessment & Plan (02/08/2018 12:38 PM CDT): Bilateral PE 04/2017. Lovenox transitioned to xarelto Continue xarelto JAMES (acute kidney injury) 02/07/2018 Assessment & Plan (02/08/2018 12:39 PM CDT): Cr 1.39 on presentation, back to baseline 1.17 after hydration and abx. Likely pre-renal. - Resolved, CTM SVT (supraventricular tachycardia) 02/07/2018 Assessment & Plan (02/07/2018 3:42 AM CDT): Seen in ED temporarily, no known history. - monitor with tele Neuropathy 02/07/2018 Assessment & Plan (08/31/2018 12:23 AM STEAMER OPERATOR): - continue gabapentin 300mg TID & Duloxetine 30mg qd Assessment & Plan (02/07/2018 3:52 AM CDT): - continue home gabapentin 900 mg tid Acute myeloid leukemia in remission 12/13/2017 Assessment & Plan (04/09/2021 6:59 PM CDT): History of doxorubicin chemotherapy and allogeneic SCT. Assessment & Plan (08/31/2018 12:20 AM STEAMER OPERATOR): H/o (FLT3, NPM1 neg) s/p MUD (day 0 04/20/2011) with Bu/Cy conditioning, donor and recipient CMV+, with h/o relapsed disease with salvage chemo [facility] with most recent BMbx neg for MRD 01/2017. F/w Dr. Mcdaniel - continue cellcept 1g BID - continue valtrex 500mg qd Assessment & Plan (02/07/2018 3:34 AM CDT): Follows with Dr. Mcdaniel. S/p allo SCT in 2010, in remission. 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 - continue cellcept 1000 mg bid - continue valtrex 500 qd prophy Small cell lung cancer 02/10/2017 Assessment & Plan (04/09/2021 6:59 PM CDT): History of chest radiation. Assessment & Plan (03/25/2021 1:55 PM CDT): Currently in remission, with prior radiation. Assessment & Plan (08/31/2018 12:21 AM STEAMER OPERATOR): Originally diagnosed 01/2017 s/p cisplatin/etoposide, thoracic radiation, and L3- L4 and L4-L5 XRT with no evidence of recurrent disease on most recent CT chest, abdomen and bMRI 06/2018. F/w Dr. Pagan - t/b with Dr. Pagan Assessment & Plan (02/08/2018 12:38 PM CDT): Follows with Dr. Pagan. Early stage disease, s/p cisplatin/etoposide and radiation to chest and spine. No evidence of disease on 01/09/18 CT C/A/P. Status post allogeneic bone marrow transplant Assessment & Plan (03/25/2021 1:55 PM CDT): With prior adriamycin chemotherapy and allogeneic stem cell transplantation. Hyperlipidemia 12/19/2007 Assessment & Plan (04/09/2021 7:02 PM CDT): He continues on simvastatin 20mg. Assessment & Plan (03/25/2021 1:56 PM CDT): He is on simvastatin. Assessment & Plan (08/31/2018 12:23 AM STEAMER OPERATOR): - continue simvastatin 20mg Assessment & Plan (02/07/2018 3:52 AM CDT): - continue home simvastatin 20 mg qd Essential (primary) hypertension Overview (03/25/2021): Hypertension - (Added by TW Conv) Assessment & Plan (03/25/2021 1:53 PM CDT): BP is adequately controlled. Encounters Date Type Department Care Team Description 08/29/2024 Telephone [facility] Bone Marrow Transplant [address] [place] [address] [phone] Frank Reddy RN 08/29/2024 Telephone [facility] Bone Marrow Transplant [address] [place] [address] [phone] Frank Mcdaniel MD PhD 07/19/2024 Telephone [facility] Bone Marrow Transplant [address] [place] [address] [phone] Emma Joshi V. 06/12/2024 Telephone [facility] Oncology [address] [place] [phone] Mariama Harden, RMAbisai Med Refill from Last 3 Months Immunizations Name Administration Dates Next Due Influenza, Quad, Adjuvantate d, Intramuscular 04/14/2020 Influenza, Trivalent, High D ose, Split, Preservative Free, Intramuscular 03/29/2019,04/13/2018 Influenza, Trivalent, Preser vative Free, Intramuscular 06/08/2015,05/16/2013 Influenza, Unspecified 04/17/2017 Pfizer SARS-CoV-2 Monovalent Vaccination (12+ Yrs) PURPLE 03/28/2021,01/21/2021,08/28/2020,08/07 Pfizer Sars-Cov-2 Bivalent V accination (12+ YRS) 04/07/2022 Pneumococcal Conjugate PCV 13 03/29/2019 Tdap 08/01/2019 ZOSTER LIVE 04/02/2019 ZOSTER Recombinant 06/06/2019,04/02/2019 Surgical History Surgery Date Site/Laterality Comments TN ARTHROPLASTY KNEE TIBIAL PLATEAU Knee Replacement - -left (Added by TW Conv) BACK SURGERY Back Surgery - (Added by TW Conv) TN EXCISION GANGLION WRIST DORSAL/VOLAR PRIMARY Wrist Excision Of Ganglion - (Added by TW Conv) PORT REMOVAL 03/11/2021 N/A HERNIA REPAIR ABDOMINAL SURGERY hernia repair SKIN BIOPSY legs and face THORACENTESIS Medical History Medical History Date Comments Essential (primary) hypertension Hypertension - (Added by TW Conv) Hyperlipidemia Hyperlipidemia - (Added by TW Conv) Personal history of other di seases of the nervous system and sense organs History of periphe ral neuropathy - (Added by TW Conv) Shortness of breath Shortness of breath - (Added by TW Conv) Complication of bone marrow transplant (HCC) Complications of bone marrow transplant - (Added by TW Conv) Arrhythmia Pneumonia Type 2 diabetes mellitus (HCC) COPD (chronic obstructive pu lmonary disease) (HCC) Awareness under anesthesia When pt had his wisdom teeth removed 40+ yrs ago Sleep apnea no longer uses C PAP CHF (congestive heart failur e) (CMS/HCC) (HCC) SVT (supraventricular tachyc ardia) (HCC) Cancer (CMS/HCC) (HCC) Lung canc er and spine cancer, leukemia AML (acute myeloid leukemia) (HCC) History of pulmonary embolus (PE) Coronary artery disease invo lving naknek coronary artery of naknek heart with angina pectoris (HCC) 04/16/2021 Family History Medical History Relation Name Comments No Known Problems Mother Lymphoma Other 1 Acute Lymphoma - (Added by TW Conv) Breast cancer Other 2 Breast Cancer - (Added by TW Conv) Relation Name Status Comments Mother Other 1 Other 2 Social History Tobacco Use Types Packs/Day Years Used Date Smoking Tobacco: Former Cigarettes 2 45 0 03/30/1965 - 03/30/2010 Smokeless Tobacco: Former Snuff, Chew Tobacco Cessation:Counseling Given: No AUDIT-C Answer Date Recorded Q1: How often [...] on file Legal Sex Male 2:44 AM STEAMER OPERATOR Gender Identity Not on file Sexual Orientation Not on file Obstetrics History Last Filed Vital Signs Vital Sign Reading Time Taken Comments Blood Pressure 107/62 05/07/2024 12:51 PM CDT Pulse 75 05/07/2024 12:51 PM CDT Temperature 36.7 C (98 F) 05/07/2024 12:51 PM CDT Respiratory Rate 18 05/07/2024 12:5 1 PM CDT Oxygen Saturation 93% 05/07/2024 12: 51 PM CDT Inhaled Oxygen Concentration - - Weight 107.1 kg (236 lb 3.2 oz) 024 12:51 PM CDT Height 180.3 cm (5' 11 ) 04/06/2024 2:11 PM CDT Body Mass Index 32.94 04/06/2024 2:11 PM CDT Plan of Treatment Health Maintenance Due Date Last Done Comments Colon Cancer Screening-Colonoscopy 1950 Hepatitis C Screening 1950 Dilated Eye Exam 1950 Foot Exam 1949 Hepatitis B Screening 1967 Well Visit 65+ 2014 Albumin Creatinine Ratio, Urine 01/31/2018 7 Depression Screening 02/06/2019 02/06/2018 Pneumococcal vaccine 65+ (2 of 2 - PPSV23 or PCV20) 05/24/2019 03/29/2019 Hemoglobin A1C 08/09/2021 02/06/2021, 03/18, 08/30/2018, Additional history exists Fall Risk Assessment 04/29/2022 04/29/2021 Lipid Panel 09/28/2023 09/27/2022, 08/18, 03/04/2022, Additional history exists Covid-19 Vaccine (2023-2 5 season) 2024 04/07/2022, 03/28/2021, 01/21/2021, Additional history exists Influenza Vaccine (#1) 2024 , 03/29/2019, 04/13/2018, Additional history exists eGFR 05/07/2025 05/07/2024, 08/12/2023, 09/26/2023, Additional history exists DTaP/Tdap/Td Vaccine (2 - Td or Tdap) 08/01/2029 08/01/2019 Zoster Vaccine Completed 06/06/2019, 03/18, 04/02/2019 Abdominal Aortic Aneurysm (A AA) Screen Completed 02/21/2024, 02/22/2023, 08/31/2022, Additional history exists Medical Devices Implanted Type Area Hat Measurer Device Identifier Shelf Expiration Date Model / Serial / Lot Lt Total Knee Arthroplasty-09/18 Implanted:2001 (Quantity not on file) Knee Procedures Procedure Name Priority Date/Time Associated Diagnosis Comments EGFR Routine 05/07/2024 10:55 AM CDT 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 73 m2 Comment: Interpretive Data Reference Interval Normal >/= 90 mL/min/1.73m2 Mildly decreased* 60 - 89 mL/min/1.73m2 Mildly to moderately decreased 45 - 59 mL/min/1.73m2 Moderately to severely decreased 30 - 44 mL/min/1.73m2 Severely decreased 15 - 29 mL/min/1.73m2 Kidney Failure < 15 mL/min/1.73m2 *Relative to young adult level Estimated glomerular filtration rate is determined by the 2020 CKD-EPI equation recommended by the National Kidney Foundation (A Unifying Approach to GFR Estimation: Recommendations of the NKF-ASK Task Force on Reassessing the Inclusion of Race in Diagnosing Kidney Disease, JASN 2020). The CKD-EPI equation should not be used for patients with unstable renal function and has not been validated in children and those over 70. Current interpretive data was last reviewed 2021. Blood 05/07/2024 10:5 5 AM CDT 05/07/2024 11:07 AM CDT us Frank Mcdaniel MD PhD LAB BLOOD ORDERABLES Fin al Result [facility] [address] [facility] Department [place] [address] * CT Chest Abdomen Pelvis W Contrast (02/21/2024 10:08 AM CDT) Anatomical Region Laterality Modality Body N/A Computed Tomogra phy 02/21/2024 10:1 6 AM CDT Impressions 02/21/2024 10:16 AM CDT 1. No change in right lung radiation changes. No metastases. 2. No change in indeterminate groundglass opacity left upper lobe. Electronically signed by: Marcus Poole M.D. Narrative 02/21/2024 10:16 AM CDT EXAMINATION: CT CHEST, ABDOMEN AND PELVIS WITH INTRAVENOUS CONTRAST TECHNIQUE: Standard CT of the chest, abdomen and pelvis was performed after the administration of intravenous contrast. Studies were performed after the administration of the following amount of Optiray 350: 94 mL HISTORY: Lung cancer FINDINGS: Comparison is made to prior study of 02/22/2023. Chest: Again seen is moderately severe emphysema without any dominant bulla or bleb. Radiation changes are seen throughout the right lung with volume loss. Within the left upper lobe of a groundglass opacity is seen which is somewhat stellate. This is unchanged when compared to the prior study measures 8 mm at slice position -1818.2. No supraclavicular, axillary or mediastinal lymphadenopathy is seen. Small amount of fluid is seen in the pericardial recesses but there is no pericardial effusion. Right pleural thickening is seen but there is no pleural effusion. Abdomen/pelvis: The spleen is diminutive. The left adrenal gland is mildly enlarged but unchanged and a drain a form. The right adrenal gland is normal. The liver and gallbladder are unremarkable. The pancreas is normal in appearance. The kidneys are symmetric bilaterally. Note is made of mild ectasia of the abdominal aorta which does not reach dimension greater than 2.6 cm. The urinary bladder is fluid-filled but not thickened. The prostate is normal in size. The colon and small bowel are normal in course and caliber with a large amount of stool seen within the colon. The bone windows do not demonstrate any osseous lesion. Procedure Note Marcus Poole MD - 02/21/2024 EXAMINATION: CT CHEST, ABDOMEN AND PELVIS WITH INTRAVENOUS CONTRAST TECHNIQUE: Standard CT of the chest, abdomen and pelvis was performed after the administration of intravenous contrast. Studies were performed after the administration of the following amount of Optiray 350: 94 mL HISTORY: Lung cancer FINDINGS: Comparison is made to prior study of 02/22/2023. Chest: Again seen is moderately severe emphysema without any dominant bulla or bleb. Radiation changes are seen throughout the right lung with volume loss. Within the left upper lobe of a groundglass opacity is seen which is somewhat stellate. This is unchanged when compared to the prior study measures 8 mm at slice position -1818.2. No supraclavicular, axillary or mediastinal lymphadenopathy is seen. Small amount of fluid is seen in the pericardial recesses but there is no pericardial effusion. Right pleural thickening is seen but there is no pleural effusion. Abdomen/pelvis: The spleen is diminutive. The left adrenal gland is mildly enlarged but unchanged and a drain a form. The right adrenal gland is normal. The liver and gallbladder are unremarkable. The pancreas is normal in appearance. The kidneys are symmetric bilaterally. Note is made of mild ectasia of the abdominal aorta which does not reach dimension greater than 2.6 cm. The urinary bladder is fluid-filled but not thickened. The prostate is normal in size. The colon and small bowel are normal in course and caliber with a large amount of stool seen within the colon. The bone windows do not demonstrate any osseous lesion. IMPRESSION: 1. No change in right lung radiation changes. No metastases. 2. No change in indeterminate groundglass opacity left upper lobe. Electronically signed by: Marcus Poole M.D. Lida Pagan MD IMG CT PROCEDURES Final Re sult * (ABNORMAL) Lipid panel (09/27/2022 8:08 AM CDT) Cholesterol 146 30 - 199 mg/dL [facility] Comment: Interpretive Data Ages < or = 19 years Acceptable: <170 mg/dL Borderline high: 170-199 mg/dL High: >or= 200 mg/dL Ages > or = 20 years Desirable: <200 mg/dL Borderline high: 200-239 mg/dL High: >or= 240 mg/dL Literature References: 1. Expert Panel on Integrated Guidelines for Cardiovascular Health and Risk Reduction in Children and Adolescents. Pediatrics 2011;128:S213 2. NCEP Expert Panel. Circulation 2003;110:227 Current Interpretive Data was last revised on 2018. Triglycerides 213(H) <=149 mg/dL [facility] Comment: Interpretive Data Ages < or = 9 years Acceptable: <75 mg/dL Borderline high: 75-99 mg/dL High: >or= 100 mg/dL Ages 10 to 20 years Acceptable: <90 mg/dL Borderline high: 90-129 mg/dL High: >or= 130 mg/dL Ages > or = 20 years Desirable: <150 mg/dL Borderline high: 150-199 mg/dL High: 200-499 mg/dL Very high: >or= 499 mg/dL Literature References: 1. Expert Panel on Integrated Guidelines for Cardiovascular Health and Risk Reduction in Children and Adolescents. Pediatrics 2011;128:S213 2. NCEP Expert Panel. Circulation 2004;110:227 Current Interpretive Data was last revised on 2018. HDL 42 >=40 mg/dL [facility] Comment: Interpretive Data Ages < or = 19 years Acceptable: >45 mg/dL Borderline low: 40-45 mg/dL Low: <40 mg/dL Ages > or = 20 years Desirable: >or= 60 mg/dL Low: <40 mg/dL Literature References: 1. Expert Panel on Integrated Guidelines for Cardiovascular Health and Risk Reduction in Children and Adolescents. Pediatrics 2011;128:S213 2. NCEP Expert Panel. Circulation 2004;110:227 Current Interpretive Data was last revised on 2018. LDL, calculated 61 <=129 mg/dL [facility] Comment: Interpretive Data Ages < or = 19 years Acceptable: <110 mg/dL Borderline high: 110-129 mg/dL High: >or= 130 mg/dL Ages > or = 20 years Optimal: <100 mg/dL Near optimal: 100-129 mg/dL Borderline high: 130-159 mg/dL High: >160 mg/dL Literature References: 1. Expert Panel on Integrated Guidelines for Cardiovascular Health and Risk Reduction in Children and Adolescents. Pediatrics 2011;128:S213 2. NCEP Expert Panel. Circulation 2004;110:227 Current Interpretive Data was last revised on 2018. Non-HDL Cholesterol 104 mg/dL [facility] Comment: Interpretive Data Ages < or = 19 years Acceptable: <120 mg/dL Borderline high: 120-144 mg/dL High: >145 mg/dL Ages > or = 20 years When triglycerides are >200 mg/dL, Non-HDL cholesterol is a secondary target of therapy with treatment goals that are 30 mg/dL greater than the LDL cholesterol target. Literature References: 1. Expert Panel on Integrated Guidelines for Cardiovascular Health and Risk Reduction in Children and Adolescents. Pediatrics 2011;128:S213 2. NCEP Expert Panel. Circulation 2004;110:227 Current Interpretive Data was last revised on 2018. Chol/HDL ratio 3 [facility] Blood 09/27/2022 8:08 AM CDT 09/27/2022 8:40 AM CDT Narrative [facility] - 09/27/2022 9:40 AM CDT FASTING repeat lipid panel, cardio onc. us Debra Mallory TOOL AND DIE MAKER APPRENTICE LAB BLOOD ORDERABLES Final Resul t [facility] [address] [facility] Department of Laboratories [place], [place] [id number] * (ABNORMAL) Hemoglobin A1c (02/06/2021 4:25 AM CDT) Hgb A1C 7.1(H) 4.0 - 5.6 % [facility] [facility]OSPITAL Estimated Average Glucose 157 mg/dL [facility] Comment: The ADA recommends reporting an estimated Average Glucose (eAG) with all Hemoglobin A1c results using the equation derived from a study of 507 normal and diabetic adults. Minority populations were underrepresented and children were not included. (Diabetes Care 2020; 43(S1): S66-S76). The eAG is not equivalent to a fasting glucose. Blood specimen (specimen) 02/06/2021 4:25 AM CDT 02/06/2021 4:42 AM CDT Frank Mcdaniel MD PhD LAB BLOOD ORDERABLES Fin al Result Performing Organization Address [facility] Co de Phone Number [facility] Department [place] [address] * (ABNORMAL) ALBUMIN / CREATININE URINE RATIO, RANDOM (01/31/2017 3:08 PM CDT) Microalbumin, ur 90.7 mcg/mL [facility] Creatinine, ur 99.10 mg/dL [facility] Microalbumin/c reat ratio 91.5(H) 0.1 - 29.9 mcg/mg Cr [facility] Urine 01/31/2017 3:08 PM CDT 01/31/2017 4:31 PM CDT Lucille Duran LAB BLOOD BANK TEST ORDERABLES F inal Result Performing Organization Address [facility] de Phone Number [facility] Department [place] [address] from Last 3 Months or Most Recently Relevant to Health Maintenance Insurance [facility] MEDICARE HMO MEDICARE FORMERLY [facility] [place] HUMANA CHOICE MEDICARE O MANAGED MEDICARE GENERIC RISK OTHER [facility] MEDICARE HMO Advance Directives For more information, please contact: [phone] * Full Code (Latest Code Status on File) Date Activated Date Inactivated Comments 04/29/2021 12:57 PM 04/29/2021 6:41 PM * Full Code Date Activated Date Inactivated Comments 03/11/2021 7:12 AM 03/11/2021 12:44 PM * Full Code Date Activated Date Inactivated Comments 02/05/2021 10:18 PM 02/07/2021 6:19 PM * Full Code Date Activated Date Inactivated Comments 08/30/2018 9:12 PM 08/31/2018 8:24 PM * Full Code Date Activated Date Inactivated Comments 02/07/2018 12:17 AM 02/08/2018 7:54 PM Care Teams Acid Strength Inspector Relationship Specialty Start Date End Date Aquilino Jerry MD [address] [facility] [address] [place] [address] PCP - General 10/25/16 Lida Pagan MD [address] [facility] [address] [place] [address] Medical Oncologist/Banana Room Cutter Hematology and Oncology 01/10/18 Naveen Bueno MD [address] [facility] [address] [place] [address] Medical Oncologist/Banana Room Cutter Hematology and Oncology 01/10/18 Clark Adams MD [address] [facility] [address] [place] [address] Referring Physician Cardiology 05/11/24
--- OUTSIDE RECORDS SUMMARY | 2024-08-29 10:42 | XMS_ITS | Referral Summary ---
Author Organization [facility] Address [address] [place] [place] [address] Care Team Providers Care Rail Car Loader Name Role Phone Aquilino Jerry DO Primary Care Provider Source Comments [facility],non-owned Affiliates and Associated Physician Practices is amultiple site organization consisting of ambulatory clinics and hospital sitesin [place], [place], [place] and [place]. This disclosure is being madepursuant to the Care Everywhere program and may not contain all information available regarding this patient. Last updated 18.[facility] Flaviar Social History Tobacco Use Types Packs/Day Years Used Date Smoking Tobacco: Never Assessed Sex and Gender Information Value Date Recorded Sex Assigned at Not on file Gender Identity Not on file Sexual Orientation Not on file Plan of Treatment Not on file Care Teams Rail Car Loader Relationship Specialty Start Date End Date Aquilino Jerry DO [address] [facility] [address] [place] [address] [facility] - General 12/31/21
--- OUTSIDE RECORDS SUMMARY | 2024-08-29 10:42 | XMS_ITS | Clinical Summary ---
Author Organization [facility] Address [address] [facility] [place] [address] Phone Care Team Providers Care Dulite Machine Bluer Name Role Phone Rosalino Aquilino Barnhart DO Primary Care Provider Fritz Wu DO Unavailable [phone] Amy Boucher SENIOR MEDIA BUYER, GEM STONE CUTTER Unavailable Arlet Eller SENIOR MEDIA BUYER, GEM STONE CUTTER Unavailable Allergies No known active allergies Medications polyethylene glycol (MIRALAX) Powder Mix the entire bottle with 64 oz of a clear liquid. Use as directed by the office for colonoscopy prep. 255 g 0 6 Active aspirin EC 81 MG Tablet Delayed Response Take 81 mg by mouth daily. Active carvedilol (COREG) 25 MG Tablet Take 25 mg by mouth 2 times daily. Active DULoxetine (CYMBALTA) [address] Particles Take 30 mg by mouth daily. Active metFORMIN (GLUCOPHAGE) 500 MG Tablet Take 500 mg by mouth 2 times daily (with meals). Active metroNIDAZOLE (FLAGYL) 500 MG Tablet Take 500 mg by mouth daily. Active predniSONE (DELTASONE) 5 MG Tablet Take 5 mg by mouth daily. Use as directed. Active simvastatin (ZOCOR) 20 MG Tablet Take 20 mg by mouth every evening. Active valACYclovir (VALTREX) 500 MG Tablet Take 500 mg by mouth daily. Active gabapentin (NEURONTIN) 300 MG Capsule Take 300 mg by mouth 3 times daily. Active MYCOPHENOLATE MOFETIL PO Take 500 mg by mouth 2 times daily. Active sulfamethoxazol e-trimethoprim DS (BACTRIM DS, SEPTRA DS) 800-160 MG Tablet Take 1 Tab by mouth 2 times daily. 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 file Not on file Not on file Last Filed Vital Signs Vital Sign Reading Time Taken Comments Blood Pressure 121/66 01/09/2016 12:30 PM CDT Pulse - - Temperature 36 C (96.8 F) 01/09/2016 12:30 PM CDT Respiratory Rate 16 01/09/2016 12:30 PM CDT Oxygen Saturation 100% 01/09/2016 12:30 PM CDT Inhaled Oxygen Concentration - - Weight 115.7 kg (255 lb) 01/05/2016 3:00 PM CDT Height 182.9 cm (6') 01/05/2016 3:00 PM CDT Body Mass Index 34.58 01/05/2016 3:00 PM CDT Plan of Treatment Health Maintenance Due Date Last Done Comments Hepatitis C Virus (HCV) Screening 1950 TdaP Immunization 1950 SARS-COV-2 Immunization (#1) 1954 Cologuard 1999 Immunochemical Fecal Occult Blood 1999 Zoster Immunization (2 of 2) 08/01/2019 06/06/2019, 04/02/2019 Pneumococcal Immunization (50+ years) (2 of 2 - PPSV23) 03/29/2020 03/29/2019 Influenza Immunization (#1) 03/18/202403/19, 03/29/2019, 04/13/2018, Additional history exists Respiratory Syncytial Virus (RSV) Immunization (Adult) (1 - 1-dose 75+ series) 2024 Colonoscopy 09/24/2030 09/24/2020, 01/09/2016 Colorectal Cancer Screening 09/24/2030 09/24/2020, 01/09/2016 Pneumococcal Immunization Combined Discontinued 03/29/2019 Hepatitis B Immunization Aged Out No longer eligible based on patient's age to complete this topic Meningococcal Immunization (ACWY) Aged Out No longer eligible based on patient's age to complete this topic Rotavirus Immunization Aged Out No lo nger eligible based on patient's age to complete this topic Procedures Procedure Name Priority Date/Time Associated Diagnosis Comments COLONOSCOPY Routine 09/24/2020 from Last 3 Months or Most Recently Relevant to Health Maintenance Results * COLONOSCOPY (09/24/2020) Fritz Wu DO PROCEDURE/MINOR SURGICAL ORDERA BLES Final Result from Last 3 Months or Most Recently Relevant to Health Maintenance Insurance MEDICARE C HUMA[employer] Care Teams Dulite Machine Bluer Relationship Specialty Start Date End Date Aquilino Jerry DO [address] [place] [address] PCP - General Internal Medicine 01/08/16 Fritz Wu DO [address] [place] [address] Gastroenterology 01/22/16 Amy Boucher APRN, GEM STONE CUTTER [address] [place] [address] Nurse Practitioner Advanced Practice Nurse 01/22/16 Arlet Eller APRN, GEM STONE CUTTER [address] [place] [address] Nurse Practitioner Advanced Practice Nurse 01/22/16
--- OUTSIDE RECORDS SUMMARY | 2024-08-29 10:42 | XMS_ITS ---
Author Organization [facility] michelle Address [address] [facility] [address] [place] [address] Care Team Providers Care Radiagraph Operator Name Role Phone zzzzMigration, zzzzProvider Unavailable Unav ailable REASON FOR VISIT EMR-[facility] Encounters Encounter Location Date Provider Diagnosis [facility] [address] [facility] [address] [place] [address] 05/08/2023 zzzzProvider zzzzMigration Plan Of Treatment No Information Progress Notes * Brendan PALMER IDOB:[birth year] (74 yo M)Acc No.[id number]:05/08/2023 Patient: Brendan TAI I :1950 A ge:72 Y S ex:Male Address:[address] [place] [address] Subjective: * Chief Complaints: * E MR-Misha * Medical History: * Surgical History: * Hospitalization/Major Diagno stic Procedure: * Medications: Objective: * Vitals: * Physical Examination: Assessment: Plan: * Treatment: * Procedure Codes: * * Date:
--- OUTSIDE RECORDS SUMMARY | 2024-08-29 10:42 | XMS_ITS | Encounter Summary ---
Author Organization [facility] Address [address] [place] [address] Care Team Providers Care Calender Operator Name Role Phone Aquilino Jerry MD Primary Care Provider [phone] Lida Pagan MD Unavailable [phone] Naveen Bueno MD Unavailable Clark Adams MD Unavailable Encounter Details Date Type Department Care Team (Late st Contact Info) Description 03/10/2020 Telephone [facility] [address] [place] [address] Earl Bolanos, RT Social History Tobacco Use Types Packs/Day Years Used Date Smoking Tobacco: Former Cigarettes Smokeless Tobacco: Never Sex and Gender Information Value Date Recorded Sex Assigned at Not on file Legal Sex Male 2:44 AM LIVESTOCK COMMISSION AGENT Gender Identity Not on file Sexual Orientation Not on file documented as of this encounter Plan of Treatment Not on file documented as of this encounter Visit Diagnoses Not on filedocumented in this encounter Additional Health Concerns Infection Onset Date Last Indicated Resolved Time COVID: Suspected 02/05/2021 02/05/2021 02/05/2021 3:59 PM CDT COVID: Suspected 08/12/2021 08/12/2021 08/12/2021 12:56 PM LIVESTOCK COMMISSION AGENT COVID: Suspected 08/12/2021 08/12/2021 08/12/2021 8:34 PM LIVESTOCK COMMISSION AGENT COVID19 08/12/2021 08/12/2021 08/22/2021 3:05 AM LIVESTOCK COMMISSION AGENT COVID: Recovered Comment:Added based on recent COVID infection. 08/22/2021 08/30/2021 12/20/2021 3:05 AM C DT documented as of this encounter Care Teams Calender Operator Relationship Specialty Start Date End Date Aquilino Jerry MD [address] [place] [address] PCP - General 10/25/16 Lida Pagan MD [address] [facility] [address] [place] [address] Medical Oncologist/Solar Business Developer Hematology and Oncology 01/10/18 Naveen Bueno MD [address] [place] [address] Medical Oncologist/Solar Business Developer Hematology and Oncology 01/10/18 Clark Adams MD [address] [facility] [address] [place] [address] Referring Physician Cardiology 05/11/24 documented as of this encounter
--- OUTSIDE RECORDS SUMMARY | 2024-08-29 10:42 | XMS_ITS | Patient Health Summary ---
Author Organization [facility] Address [address] [facility] [place] [place] [address] Care Team Providers Care 8Th Grade Mathematics Teacher Name Role Phone Aquilino Jerry DO Primary Care Provider [phone] Note from [facility],non-owned Affiliates and Associated Physician Practices is amultiple site organization consisting of ambulatory clinics and hospital sitesin [place], [place], [place] and [place]. This disclosure is being madepursuant to the Care Everywhere program and may not contain all information available regarding this patient. Last updated 18.[facility] Social History Tobacco Use Types Packs/Day Years Used Date Smoking Tobacco: Never Assessed Sex and Gender Information Value Date Recorded Sex Assigned at Not on file Gender Identity Not on file Sexual Orientation Not on file Procedures * DERMATOPATHOLOGY(Performed 04/13/2018) * DERMATOPATHOLOGY(Performed 04/05/2018) * DERMATOPATHOLOGY(Performed 06/07/2017) * DERMATOPATHOLOGY(Performed 05/27/2016) * DERMATOPATHOLOGY(Performed 07/09/2014) * DERMATOPATHOLOGY(Performed 06/27/2014) * DERMATOPATHOLOGY(Performed 03/20/2013) Results * DERMATOPATHOLOGY (04/13/2018 12:00 AM CDT) Only the most recent of7 resultswithin the time period is included. Case Report Dermatopathology Report Case: [id number] Authorizing Provider: Vladimir Eduardo MD Collected: 04/13/2018 12:00 AM Pathologist: Darlin Bowers MD Received: 04/14/2018 11:35 AM Specimen: Skin, left aguirre 10:06 AM CDT DERMATOPATHOLOGY LABORATORY Final Diagnosis Specimen A. SKIN, left aguirre: BASAL CELL CARCINOMA; NOT PRESENT AT MARGIN (C44.719) DERMAL SCAR; PRESENT AT MARGIN (L90.5) 10:06 AM [facility] NAMED [facility] DERMATOPATHOLOGY LABORATORY Clinical History R/O Bx proven BCC, superficial multifocal, eroded. Previous Bx: [id number]. 10:06 AM FORMERLY NAMED [facility] DERMATOPATHOLOGY LABORATORY Gross Description Specimen A: Received is one formalin filled container labeled with the patient's name and designated left aguirre. The specimen consists of a curettage and desiccation biopsy (2 pieces) measuring [id number] & [id number]. Jar 0+. 10:06 AM FORMER[facility] NAMED [facility] DERMATOPATHOLOGY LABORATORY Microscopic Description Specimen A. SKIN, left aguirre: Attached to the undersurface of the epidermis, there are small aggregates of basaloid cells with a high nuclear to cytoplasmic ratio and peripheral palisading. This lesion is not present at the margin of the specimen. There are fibroblasts and collagen bundles oriented parallel to the skin surface with elongated blood vessels, some of which are oriented perpendicular to the skin surface.The dermal scar extends to the margin of the specimen. 10:06 AM FOR[facility] NAMED [facility] DERMATOPATHOLOGY LABORATORY Disclaimer An external and internal positive and negative controls are appropriate for the histochemical, immunohistochemical and immunofluorescence stain(s) in this case (if any), except where stated explicitly. The performance characteristics of the stain(s) cited in this report were developed and its performance characteristic determined by the Dermatopathology Laboratory at [facility]. These tests need not be, and therefore are not, approved by the [place] Food and Drug Administration. The tests are used for clinical purposes. Billing Codes Specimen Charges Stain Charges 08305 1 10:06 AM T DERMATOPATHOLOGY LABORATORY Embedded Images 10:06 AM T DERMATOPATHOLOGY LABORATORY Pathology/Cytolog y TISSUE SPECIMEN FROM SKIN / Unknown 04/13/2018 04/14/2018 11:35 AM CDT Vladimir Eduardo MD LAB - PATHOLOGY/CYTO LOGY ORDERABLES DERMATOPATHOLOGY LABORATORY [facility] - Department of Dermatology [address] [facility], 5th Floor Lab [address] [place], [place] [address] [phone] Care Teams 8Th Grade Mathematics Teacher Relationship Specialty Start Date End Date Aquilino Jerry DO [address] [facility] [address] [place] [address] PCP - General 12/31/21
--- OUTSIDE RECORDS SUMMARY | 2024-08-29 10:42 | XMS_ITS | Encounter Summary ---
Author Organization [facility] Address [address] [place] [address] Phone Care Team Providers Care Beef Splitter Name Role Phone Aquilino Jerry MD Primary Care Provider [phone] Lida Pagan MD Unavailable [phone] Naveen Bueno MD Unavailable [phone] Clark Adams MD Unavailable Encounter Details Date Type Department Care Team (Late st Contact Info) Description 05/18/2024 Telephone [facility] [address] [place] [address] Roseanna Rey Social History Tobacco Use Types Packs/Day Years [...] on file Legal Sex Male 2:44 AM SENIOR LOSS CONTROL SPECIALIST Gender Identity Not on file Sexual Orientation Not on file documented as of this encounter Ordered Prescriptions Prescription Sig Dispense Quantity Refills Last Filled Start Date End Date mycophenolate mofetil (CELLCEPT) 500 mg tabletIndications: Acute myeloid leukemia in remission (HCC),Status post allogeneic bone marrow transplant (HCC) Take 1 tablet (500 mg total) by mouth 2 (two) times a day 120 tablet 3 05/18/2024 05/22/2024 documented in this encounter Plan of Treatment Not on file documented as of this encounter Visit Diagnoses Diagnosis 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) Bone marrow replaced by transplant documented in this encounter Discontinued Medications Medication Sig Discontinue Reason Start Date End Da te mycophenolate mofetil (CELLCEPT) 500 mg tabletIndications:Acute myeloid leukemia in remission (HCC),Status post allogeneic bone marrow transplant (HCC) Take 1 tablet (500 mg total) by mouth 2 (two) times a day Reorder 04/25/2024 05/18/2024 documented as of this encounter Care Teams Beef Splitter Relationship Specialty Start Date End Date Aquilino Jerry MD [address] [place] [address] PCP - General 10/25/16 Lida Pagan MD [address] [facility] [address] [place] [address] Medical Oncologist/Special Service Officer Hematology and Oncology 01/10/18 Naveen Bueno MD [address] [facility] [address] [place] [address] Medical Oncologist/Special Service Officer Hematology and Oncology 01/10/18 Clark Adams MD [address] [facility] [address] [place] [address] Referring Physician Cardiology 05/11/24 documented as of this encounter
--- OUTSIDE RECORDS SUMMARY | 2024-08-29 10:42 | XMS_ITS ---
Author Organization [facility] Address [address] [place] [address] Care Team Providers Care Jewelry Store Manager Name Role Phone Aquilino Jerry MD Primary Care Provider [phone] Lida Pagan MD Unavailable [phone] Naveen Bueno MD Unavailable [phone] Clark Adams MD Unavailable [phone] Active Problems Patient Care Coordination No te Formatting of this note is d ifferent from the original. BMT Inpatient Care Coordination Overview Diagnosis AML, SCLC Floor [address] (9800 service) Treatment Plan Clinical Trial Reason for Admission Fever, fatigue Transplant/IEC Planning BMT/IEC Plan S/p 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 Patient Education Completed Issue to be Resolved Before Discharge Remain afebrile, inc PO Discharge Disposition Home Requests Sent to Case Management and/or Medical Assistants Post-Discharge Follow-Up Living Situation/Distance from [place], [place] Caregiver , self Lab/Transfusion Frequency Phone: Fax: Venous Access & Care Port and PIV Local Oncologist Contact Phone: Fax: Post-Discharge Office Visit (H30) JFD 02/20 Lab/ROV 03/30 Lab/ROV Miscellaneous Notes: 02/06 Can d/c over w/e if remains afebrile, (-) cx, and increase PO Problem Noted Date Diagnosed Date Agent orange exposure 11/21/2023 Orthostasis 11/21/2023 COVID-19 08/13/2021 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 Symptoms improved after thoracentesis but have not resolved. Potentially this is due to obstructive lung disease - he had moderate obstruction on 11/2020 PFTs. We will check LVEDP at time of [facility]. Chronic systolic heart failure (CMS/HCC) 021 Assessment & Plan (04/09/2021 7:02 PM CDT): He appears euvolemic on exam. Recent CMR confirmed reduced LVEF at 30%. Etiology is unclear, though he does have history of doxorubicin chemotherapy and significant risk factors for CAD. We will proceed with [facility] to exclude coronary ischemia. We will also [...] 08/31/2018 Assessment & Plan (08/31/2018 12:23 AM SENIOR LINUX UNIX ENGINEER): At home on metformin 500mg bid. 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 F/w Dr. Valdez - continue cellcept 1g BID - continue valtrex 500mg qd Assessment & Plan (02/07/2018 3:34 AM CDT): Follows with Dr. Valdez. S/p allo SCT in 2010, in remission. 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 - continue cellcept 1000 mg bid - continue valtrex 500 qd prophy Small cell lung cancer 02/10/2017 Assessment & Plan (04/09/2021 6:59 PM CDT): History of chest radiation. Assessment & Plan (03/25/2021 1:55 PM CDT): Currently in remission, with prior radiation. Assessment & Plan (08/31/2018 12:21 AM SENIOR LINUX UNIX ENGINEER): Originally diagnosed 01/2017 s/p cisplatin/etoposide, thoracic radiation, [...] simvastatin. Assessment & Plan (08/31/2018 12:23 AM SENIOR LINUX UNIX ENGINEER): - continue simvastatin 20mg Assessment & Plan (02/07/2018 3:52 AM CDT): - continue home simvastatin 20 mg qd Essential (primary) hypertension Overview (03/25/2021): Hypertension - (Added by NOELLE Quintero) Assessment & Plan (03/25/2021 1:53 PM CDT): BP is adequately controlled. Current Oncology Plans No current plan information found. Past Plans BMT/ONC IP BLOOD PRODUCTS Plan Name Start Date Discontinue Date Treatment Medications Discontinue Reason Plan Provider COVID-19 - BMT (CMV NEGATIVE/UNTESTED) ADULT BLOOD AND PLATELET ADMINISTRATION FOR INPATIENT 02/05/2021 09/27/2023 No medications scheduled. Automatic discontinuation of dormant plans Tod Rangel MD Radiation Treatments * Plan Last Treated On Elapsed Days Fractions Treated Prescribed Fraction Dose Prescribed Total Dose LS Spine 07/08/2017 11 10 300 cGy 3,000 cGy Reference Point Last Treated On Elapsed Days Session Dose Total Dose LS Spine_DPV 07/08/2017 11 300 cGy 3,000 cGy Lifetime Dose Tracking * Chemical Lifetime Dose Automatic Entry Manual Entr y Fluoro Time 0.1 minutes 0.1 minutes 0 minutes Air kerma at the reference point (Ka,r) 1,673 mGy 0 mGy 1,673 mGy DLP 28,719 mGycm 28,719 mGycm 0 mGycm
--- OUTSIDE RECORDS SUMMARY | 2024-08-29 10:42 | XMS_ITS | Encounter Summary ---
Author Organization [facility] Address [address] [place] [address] Care Team Providers Care Vocational Rehabilitation Counselor Name Role Phone Aquilino Jerry DO Primary Care Provider +1- [phone] Encounter Details Date Type Department Care Team (Late st Contact Info) Description 04/14/2018 Lab Requisition [facility] Care DermPath Lab [address] [facility], [place] [address] Vladimir Eduardo MD [address] [place] [address] Social History Tobacco Use Types [...] Priority Date/Time Associated Diagnosis Comments DERMATOPATHOLOGY Routine 04/13/2018 12:0 0 AM CDT documented in this encounter Results * DERMATOPATHOLOGY (04/13/2018 12:00 AM CDT) Case Report Dermatopathology Report Case: [id number] Authorizing Provider: Vladimir Eduardo MD Collected: 04/13/2018 12:00 AM Pathologist: Darlin Bowers MD Received: 04/14/2018 11:35 AM Specimen: Skin, left aguirre 8 10:06 AM CDT DERMATOPATHOLOGY LABORATORY Final Diagnosis Specimen A. SKIN, left aguirre: BASAL CELL CARCINOMA; NOT PRESENT AT MARGIN (C44.719) DERMAL SCAR; PRESENT AT MARGIN (L90.5) 8 10:06 AM CDT DERMATOPATHOLOGY LABORATORY Clinical History R/O Bx proven BCC, superficial multifocal, eroded. Previous Bx: [id number]. 10:06 AM [facility] DERMATOPATHOLOGY LABORATORY Gross Description Specimen A: Received is one formalin filled container labeled with the patient's name and designated left aguirre. The specimen consists of a curettage and desiccation biopsy (2 pieces) measuring 00w38t9dt & 52z7e8dm. Jar 0+. 10:06 AM [facility] DERMATOPATHOLOGY LABORATORY Microscopic Description Specimen A. SKIN, [...] the margin of the specimen. 10:06 AM [facility] DERMATOPATHOLOGY LABORATORY Disclaimer An external and internal positive and negative controls are appropriate for the histochemical, immunohistochemical and immunofluorescence stain(s) in this case (if any), except where stated explicitly. The performance characteristics of the stain(s) cited in this report were developed and its performance characteristic determined by the Dermatopathology Laboratory at [facility]. These tests need not be, and therefore are not, approved by the [place] Food and Drug Administration. The tests are used for clinical purposes. Billing Codes Specimen Charges Stain Charges 44359 1 10:06 AM T DERMATOPATHOLOGY LABORATORY Embedded Images 10:06 AM [facility] DERMATOPATHOLOGY LABORATORY Pathology/Cytolog y TISSUE SPECIMEN FROM SKIN / Unknown 04/13/2018 04/14/2018 11:35 AM T Vladimir Eduardo MD LAB - PATHOLOGY/CYTO LOGY ORDERABLES DERMATOPATHOLOGY LABORATORY [facility] - Department of Dermatology [address] [place] [address], 5th [place] [address], [facility] [phone] documented in this encounter Visit Diagnoses Not on filedocumented in this encounter Care Teams Vocational Rehabilitation Counselor Relationship Specialty Start Date End Date Aquilino Jerry DO [address] [facility] [address] [facility] [address] [place] [address] PCP - General 12/31/21 documented as of this encounter
--- OUTSIDE RECORDS SUMMARY | 2024-08-29 10:42 | XMS_ITS | Encounter Summary ---
Author Organization [facility] Address [address] [place] [address] Phone Care Team Providers Care Recreation Teacher Name Role Phone Aquilino Jerry MD Primary Care Provider +1- [phone] Lida Pagan MD Unavailable Naveen Bueno MD Unavailable Clark Adams MD Unavailable Encounter Details Date Type Department Care Team (Late st Contact Info) Description 08/29/2024 Telephone [facility] Bone Marrow Transplant [address] [facility] Floor 6 [place] [address] Frank Mcdaniel MD PhD [address] DIV IM BONE MARROW TRANSPLANT, [address] [place] [address] Social History Tobacco Use Types Packs/Day Years [...] on file Legal Sex Male 2:44 AM FACILITIES MANAGER Gender Identity Not on file Sexual Orientation Not on file documented as of this encounter Miscellaneous Notes * Telephone Encounter - Frank Reddy RN - 08/29/2024 9:37 AM CST Called twice with no answer, left VM, advised to go to the ED for SOB and severe pain on right sidefor work up. Left call back number. LITIES MANAGER * Telephone Encounter - Stacy Landis - 08/29/2024 9:18 AM CST calling as patient is SOB and has severe pain on his right side. LITIES MANAGER documented in this encounter Plan of Treatment Not on file documented as of this encounter Visit Diagnoses Not on filedocumented in this encounter Care Teams Recreation Teacher Relationship Specialty Start Date End Date Aquilino Jerry MD [address] [place] [address] PCP - General 10/25/16 Lida Pagan MD [address] [facility] [address] [place] [address] Medical Oncologist/Maintenance Groundskeeper Hematology and Oncology 01/10/18 Naveen Bueno MD [address] [facility] [address] [place] [address] Medical Oncologist/Maintenance Groundskeeper Hematology and Oncology 01/10/18 Clark Adams MD [address] [facility] [address] [place] [address] Referring Physician Cardiology 05/11/24 documented as of this encounter
--- OUTSIDE RECORDS SUMMARY | 2024-08-29 10:42 | XMS_ITS | Clinical Summary ---
Author Organization [facility] Address [address] [place] [address] Care Team Providers Care Supervisor Rice Milling Name Role Phone Aquilino Jerry Primary Care Provider Source Comments [facility],non-owned Affiliates and Associated Physician Practices is amultiple site organization consisting of ambulatory clinics and hospital sitesin [place], [place], [place] and [place]. This disclosure is being madepursuant to the Care Everywhere program and may not contain all information available regarding this patient. Last updated 18.[facility] Social History Tobacco Use Types Packs/Day Years Used Date Smoking Tobacco: Never Assessed Sex and Gender Information Value Date Recorded Sex Assigned at Not on file Gender Identity Not on file Sexual Orientation Not on file Plan of Treatment Health Maintenance Due Date Last Done Comments COLOGUARD (AGES 45-75) - COL ON CA SCREENING 1950 COLON MONITORING 1949 COLONOSCOPY - COLON CA SCREENING 1949 CT COLONOGRAPHY - COLON CA SCREENING 1950 Colorectal Cancer Screening 1950 FIT - COLON CA SCREENING 1949 FLEX SIG - COLON CA SCREENING 1949 LIPID TESTING 1949 HEPATITIS C SCREENING 08/12/1967 DTAP/TDAP/TD VACCINES (1 - Tdap) 1968 PNEUMOCOCCAL VACCINE 50+ (1 of 1 - PCV) 1999 ZOSTER VACCINE (1 of 2) 1999 COVID-19 VACCINE ( - 2023-2 5 season) 2024 INFLUENZA VACCINE (#1) 2024 DEPRESSION SCREENING 07/18/2024 MEDICARE AWV CALENDAR YEAR 2024 Respiratory Syncytial Virus (RSV) Vaccine Pt: or over 60 yrs (1 - 1-dose 75+ series) 2024 HEPATITIS B VACCINE Aged Out No longe r eligible based on patient's age to complete this topic HIB VACCINE Aged Out No longer eligi ble based on patient's age to complete this topic HPV VACCINE Aged Out No longer eligi ble based on patient's age to complete this topic MENINGOCOCCAL (Group B) VACCINE Aged Out No longer eligible based on patient's age to complete this topic MENINGOCOCCAL VACCINE Aged Out No jackson christie eligible based on patient's age to complete this topic Care Teams Supervisor Rice Milling Relationship Specialty Start Date End Date Aquilino Jerry DO [address] [facility] [address] [place], [place] [id number] PCP - General 12/31/21
--- OUTSIDE RECORDS SUMMARY | 2024-08-29 10:43 | XMS_ITS | Referral Summary ---
Author Organization [facility] Address [address] [place] [address] Care Team Providers Care Remote Medical Coder Name Role Phone Aquilino Jerry MD Primary Care Provider +1- [phone] Lida Pagan MD Unavailable Naveen Bueno MD Unavailable Clark Adams MD Unavailable Encounters Date Type Department Care Team Description 08/29/2024 Telephone [facility] Bone Marrow Transplant [address] [place] [address] [phone] Frank Reddy RN 08/29/2024 Telephone [facility] Bone Marrow Transplant [address] [place] [address] [phone] Frank Mcdaniel MD PhD 07/19/2024 Telephone [facility] Bone Marrow Transplant [address] [place] [address] [phone] Emma Joshi V. 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 Patient Education Completed Issue to be Resolved Before Discharge Remain afebrile, inc PO Discharge Disposition Home Requests Sent to Case Management and/or Medical Assistants Post-Discharge Follow-Up Living Situation/Distance from [place], [place] Caregiver , self Lab/Transfusion Frequency Phone: Fax: Venous Access & Care Port and PIV Local Oncologist Contact Phone: Fax: Post-Discharge Office Visit (H30) JFIrma 02/20 Lab/ROV 03/30 Lab/ROV Miscellaneous Notes: 02/06 Can d/c over w/e if remains afebrile, (-) cx, and increase PO Problem Noted Date Diagnosed Date Agent orange exposure 11/21/2023 Orthostasis 11/21/2023 COVID-19 08/13/2021 Coronary artery disease invo lving pilot station coronary artery of pilot station heart with angina pectoris 04/16/2021 Overview (04/16/2021): Added automatically from request for surgery [id number] Dyspnea on exertion 04/09/2021 Assessment & Plan (04/09/2021 7:01 PM CDT): The etiology of dyspnea is unclear - his NTproBNP has overall improved and he appears euvolemic on exam. Symptoms improved after thoracentesis but have not resolved. Potentially this is due to obstructive lung disease - he had moderate obstruction on 11/2020 PFTs. We will check LVEDP at time of [facility]. Chronic systolic heart failure (CMS/HCC) 021 Assessment & Plan (04/09/2021 7:02 PM CDT): He appears euvolemic on exam. Recent CMR confirmed reduced LVEF at 30%. Etiology is unclear, though he does have history of doxorubicin chemotherapy and significant risk factors for CAD. We will proceed with [facility] to exclude coronary ischemia. We [...] 08/31/2018 Assessment & Plan (08/31/2018 12:23 AM COMMUNICATIONS CONSULTANT): At home on metformin 500mg bid. 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 Assessment & Plan (08/31/2018 12:21 AM COMMUNICATIONS CONSULTANT): Originally diagnosed 01/2017 s/p cisplatin/etoposide, thoracic radiation, [...] simvastatin. Assessment & Plan (08/31/2018 12:23 AM COMMUNICATIONS CONSULTANT): - continue simvastatin 20mg Assessment & Plan (02/07/2018 3:52 AM CDT): - continue home simvastatin 20 mg qd Essential (primary) hypertension Overview (03/25/2021): Hypertension - (Added by NOELLE Quintero) Assessment & Plan (03/25/2021 1:53 PM CDT): BP is adequately controlled. Immunizations Name Administration Dates Next Due Influenza, Quad, Adjuvantate d, Intramuscular 04/14/2020 Influenza, Trivalent, High D ose, Split, Preservative Free, Intramuscular 03/29/2019,04/13/2018 Influenza, Trivalent, Preser vative Free, Intramuscular 06/08/2015,05/16/2013 Influenza, Unspecified 04/17/2017 Pfizer SARS-CoV-2 Monovalent Vaccination (12+ Yrs) PURPLE 03/28/2021,01/21/2021,08/28/2020,08/07 Pfizer Sars-Cov-2 Bivalent V accination (12+ YRS) 04/07/2022 Pneumococcal Conjugate PCV 13 03/29/2019 Tdap 08/01/2019 ZOSTER LIVE 04/02/2019 ZOSTER Recombinant 06/06/2019,04/02/2019 Social History Tobacco Use Types Packs/Day Years [...] on file Legal Sex Male 2:44 AM COMMUNICATIONS CONSULTANT Gender Identity Not on file Sexual Orientation Not on file Last Filed Vital Signs [...] 04/06/2024 2:11 PM CDT Plan of Treatment Not on file Medical Devices Implanted Type Area Cattle Knocker Device Identifier Shelf Expiration Date Model / [...] PhD LAB BLOOD ORDERABLES Fin al Result ARMOND AMARAL [facility] Department [place] [address] * CT Chest Abdomen Pelvis W Contrast [...] by: Marcus Poole M.D. Lida Pagan MD IM CT PROCEDURES Final Re sult * (ABNORMAL) Lipid panel (09/27/2022 8:08 AM CDT) Cholesterol 146 30 - 199 mg/dL ARMOND REYES Comment: Interpretive Data Ages < or = [...] revised on 2018. Triglycerides 213(H) <=149 mg/dL ARMOND REYES Comment: Interpretive Data Ages < or = [...] revised on 2018. HDL 42 >=40 mg/dL ARMOND AMARAL Comment: Interpretive Data Ages < or = [...] 2018. LDL, calculated 61 <=129 mg/dL ARMOND AMARAL Comment: Interpretive Data Ages < or = [...] revised on 2018. Non-HDL Cholesterol 104 mg/dL ARMOND AMARAL Comment: Interpretive Data Ages < or = [...] last revised on 2018. Chol/HDL ratio 3 [facility] Blood 09/27/2022 8:08 AM CDT 09/27/2022 8:40 AM CDT Narrative [facility] - 09/27/2022 9:40 AM CDT FASTING repeat lipid panel, cardio onc. Result [facility] Debra Mallory SOCIAL WORK FACULTY MEMBER LAB BLOOD ORDERABLES Final Resul t Performing Organization Address [facility] de Phone Number [facility] [place] [address] * (ABNORMAL) Hemoglobin A1c (02/06/2021 4:25 AM CDT) Pathologist [facility] Hgb A1C 7.1(H) 4.0 - 5.6 % [facility] Estimated Average Glucose 157 mg/dL [facility] Comment: The ADA recommends reporting an estimated [...] ORDERABLES Fin al Result Performing Organization Address [facility] Co de Phone Number [facility] [place] [address] * (ABNORMAL) ALBUMIN / CREATININE URINE RATIO, RANDOM (01/31/2017 3:08 PM CDT) Pathologist [facility] Microalbumin, ur 90.7 mcg/mL [facility] Creatinine, ur 99.10 mg/dL [facility] Microalbumin/c reat ratio 91.5(H) 0.1 - 29.9 mcg/mg [facility] Urine 01/31/2017 3:08 PM CDT 01/31/2017 4:31 PM CDT Lucille Smithhector Duran LAB BLOOD BANK TEST ORDERABLES F inal Result [facility] [address] [facility] [place] [address] from Last 3 Months or Most Recently Relevant to Health Maintenance Insurance [employer] MEDICARE HMO MEDICARE [facility] ANTHEM ACCESS Member Subscriber Plan / Payer (Ef fective 2012-Present) Name:Haylee Palmer I Relation to Subscriber:Self Name:HAYLEE PALMER I Payer ID:[id number] (NAIC) Type: [employer] Address: [address] MEDICARE O MANAGED MEDICARE GENERIC RISK OTHER [employer] MEDICARE HMO Advance Directives For more information, please contact: [phone] * Full Code (Latest Code Status on [...] 12:17 AM 02/08/2018 7:54 PM Care Teams Remote Medical Coder Relationship Specialty Start Date End Date Aquilino Jerry MD [address] [place] [address] PCP - General 10/25/16 Lida Pagan MD [address] [place] [address] Medical Oncologist/Set Up Operator Hematology and Oncology 01/10/18 Naveen Bueno MD [address] [place] [address] Medical Oncologist/Set Up Operator Hematology and Oncology 01/10/18 Clark Adams MD [address] [place] [address] Referring Physician Cardiology 05/11/24
--- OUTSIDE RECORDS SUMMARY | 2024-08-29 10:43 | XMS_ITS | Patient Health Record ---
Author Organization [facility] Address [address] [facility] [address] [place] [address] Support Name Relationship Address Phone Brendan Srivastava Guarantor Unknown [phone] Reason For Referral No Information Plan Of Treatment No Information
--- OUTSIDE RECORDS SUMMARY | 2024-08-29 10:43 | XMS_ITS ---
Author Organization [facility] Address [address] [facility] [address] [place] [address] Care Team Providers Care Information Systems Architect Name Role Phone zzzzMigration, zzzzProvider Unavailable Unav ailable REASON FOR VISIT [facility] Encounters Encounter Location Date Provider Diagnosis [facility] [address] [facility] [address] [place] [address] 05/07/2023 zzzzProvider zzzzMigration Plan Of Treatment No Information Progress Notes * Brendan PALMER IDOB:[birth year] (74 yo M)Acc No.[id number]:05/07/2023 Patient: Brendan TAI I :1950 A ge:72 Y S ex:Male Address:[address] [place] [address] Subjective: * Chief Complaints: * E MR-Misha * Medical History: * Surgical History: * Hospitalization/Major Diagno stic Procedure: * Medications: Objective: * Vitals: * Physical Examination: Assessment: Plan: * Treatment: * Procedure Codes: * * Date:
[2024-08-29] MEDS: IPRATROPIUM 0.5 MG/ALBUTEROL SULFATE 2.5 MG AMPUL.NEB 3 ML INHALATION (10:46)
[2024-08-29 10:56] LABS: NT Pro B Type Natriuretic Pept 341 pg/mL (19.9-100); Troponin I < 0.012 ng/mL (0.000-0.034)
--- OUTSIDE RECORDS SUMMARY | 2024-08-29 11:19 | XMS_ITS | Patient Health Summary ---
Author Organization [facility] Address [address] [facility] [place] [address] Care Team Providers Care Campus Supervisor Name Role Phone Aquilino Jerry DO Primary Care Provider [phone] Note from [facility],non-owned Affiliates and Associated Physician Practices is amultiple site organization consisting of ambulatory clinics and hospital sitesin [place], [place], [place] and [place]. This disclosure is being madepursuant to the Care Everywhere program and may not contain all information available regarding this patient. Last updated 18.[facility] Social History Tobacco Use Types Packs/Day Years [...] is included. Case Report Dermatopathology Report Case: [id number] Authorizing Provider: Vladimir Eduardo MD Collected: 04/13/2018 12:00 AM Pathologist: Darlin Bowers MD Received: 04/14/2018 11:35 AM Specimen: Skin, left aguirre 10:06 AM CDT DERMATOPATHOLOGY LABORATORY Final Diagnosis Specimen A. SKIN, left aguirre: BASAL CELL CARCINOMA; NOT PRESENT AT MARGIN (C44.719) DERMAL SCAR; PRESENT AT MARGIN (L90.5) 10:06 AM [facility] DERMATOPATHOLOGY LABORATORY Clinical History R/O Bx proven BCC, superficial multifocal, eroded. Previous Bx: [id number]. 10:06 AM [facility] DERMATOPATHOLOGY LABORATORY Gross Description Specimen A: Received is one formalin filled container labeled with the patient's name and designated left aguirre. The specimen consists of a curettage and desiccation biopsy (2 pieces) measuring 52y36y8oq & 69k5t2wc. Jar 0+. 10:06 AM [facility] DERMATOPATHOLOGY LABORATORY Microscopic Description Specimen A. SKIN, [...] the margin of the specimen. 10:06 AM [facility] DERMATOPATHOLOGY LABORATORY Disclaimer An external and internal positive and negative controls are appropriate for the histochemical, immunohistochemical and immunofluorescence stain(s) in this case (if any), except where stated explicitly. The performance characteristics of the stain(s) cited in this report were developed and its performance characteristic determined by the Dermatopathology Laboratory at [facility]. These tests need not be, and therefore are not, approved by the [place] Food and Drug Administration. The tests are used for clinical purposes. Billing Codes Specimen Charges Stain Charges 67548 1 10:06 AM T DERMATOPATHOLOGY LABORATORY Embedded Images 10:06 AM T DERMATOPATHOLOGY LABORATORY Pathology/Cytolog y TISSUE SPECIMEN FROM SKIN / Unknown 04/13/2018 04/14/2018 11:35 AM CDT Vladimir Eduardo MD LAB - PATHOLOGY/CYTO LOGY ORDERABLES DERMATOPATHOLOGY LABORATORY [facility] - Department of Dermatology [address] [facility], 5th Floor Lab [address] [place], [place] [address] [phone] Care Teams Campus Supervisor Relationship Specialty Start Date End Date Aquilino Jerry DO [address] [facility] [address] [facility] [address] [place] [address] PCP - General 12/31/21
--- OUTSIDE RECORDS SUMMARY | 2024-08-29 11:19 | XMS_ITS | Encounter Summary ---
Author Organization [facility] Address [address] [facility] [place] [address] Care Team Providers Care Lecturer In Computer Science Name Role Phone Aquilino Jerry DO Primary Care Provider [phone]- [phone] Encounter Details Date Type Department Care Team (Late st Contact Info) Description 04/06/2018 Lab Requisition [facility] Care DermPath Lab [address] [facility], [place] [address] Vladimir Eduardo MD [address] [place] [address] Social History Tobacco Use Types [...] AM CDT) Case Report Dermatopathology Report Case: [id number] Authorizing Provider: Vladimir Eduardo MD Collected: 04/05/2018 [...] of a shave biopsy (2 pieces) measuring 5p1g1nt & 1g8v5ql. Jar 0. 8 12:59 PM CDT DERMATOPATHOLOGY [...] characteristic determined by the Dermatopathology Laboratory at [facility]. These tests need not be, and therefore are not, approved by the [place] Food and Drug Administration. The tests are used for clinical purposes. Billing Codes Specimen Charges Stain Charges 43397 1 8 12:59 PM CDT DERMATOPATHOLOGY LABORATORY Embedded Images 12:59 PM CDT DERMATOPATHOLOGY LABORATORY Pathology/Cytolog y TISSUE SPECIMEN FROM SKIN / Unknown 04/05/2018 04/06/2018 11:53 AM CDT Vladimir Eduardo MD LAB - PATHOLOGY/CYTO LOGY ORDERABLES DERMATOPATHOLOGY LABORATORY [facility] - Department of Dermatology [facility] [facility], 5th Floor Lab [address] [phone] documented in this encounter Visit Diagnoses Not on filedocumented in this encounter Care Teams Lecturer In Computer Science Relationship Specialty Start Date End Date Aquilino Jerry DO [address] [facility] [address] [place] [address] PCP - General 12/31/21 documented as of this encounter
--- OUTSIDE RECORDS SUMMARY | 2024-08-29 11:19 | XMS_ITS | Referral Summary ---
Author Organization [facility] Address [address] [place] [address] Care Team Providers Care Fell Cutter Name Role Phone Aquilino Jerry DO Primary Care Provider Source Comments [facility],non-owned Affiliates and Associated Physician Practices is amultiple site organization consisting of ambulatory clinics and hospital sitesin [place], [place], [place] and [place]. This disclosure is being madepursuant to the Care Everywhere program and may not contain all information available regarding this patient. Last updated 18.[facility] [employer] Social History Tobacco Use Types Packs/Day Years Used Date Smoking Tobacco: Never Assessed Sex and Gender Information Value Date Recorded Sex Assigned at Not on file Gender Identity Not on file Sexual Orientation Not on file Plan of Treatment Not on file Care Teams Fell Cutter Relationship Specialty Start Date End Date Aquilino Jerry DO [address] [facility] [address] [place] [address] [facility] - General 12/31/21
--- OUTSIDE RECORDS SUMMARY | 2024-08-29 11:19 | XMS_ITS | Encounter Summary ---
Author Organization [facility] Address [address] [place] [address] Phone Care Team Providers Care Waste Water Plant Operator Name Role Phone Aquilino Jerry MD Primary Care Provider [phone] Lida Pagan MD Unavailable Naveen Bueno MD Unavailable [phone] Clark Adams MD Unavailable Encounter Details Date Type Department Care Team (Late st Contact Info) Description 08/29/2024 Telephone [facility] Bone Marrow Transplant [facility] Floor [address] [place] [address] Frank Reddy RN Social History [...] on file Legal Sex Male 2:44 AM GREEN CHAIN WORKER Gender Identity Not on file Sexual Orientation Not on file documented as of this encounter Miscellaneous Notes * Telephone Encounter - Frank Reddy RN - 08/29/2024 9:52 AM CST Got a hold of on cell, they are already at [place] [facility] for work up N CHAIN WORKER documented in this encounter Plan of Treatment Not on file documented as of this encounter Visit Diagnoses Not on filedocumented in this encounter Care Teams Waste Water Plant Operator Relationship Specialty Start Date End Date Aquilino Jerry MD [address] [place] [address] PCP - General 10/25/16 Lida Pagan MD [address] [facility] [address] [place] [address] Medical Oncologist/Auto Slip Cover Installer Hematology and Oncology 01/10/18 Naveen Bueno MD [address] [facility] [address] [place] [address] Medical Oncologist/Auto Slip Cover Installer Hematology and Oncology 01/10/18 Clark Adams MD [address] [facility] [address] [place] [address] Referring Physician Cardiology 05/11/24 documented as of this encounter
--- OUTSIDE RECORDS SUMMARY | 2024-08-29 11:19 | XMS_ITS | Continuity of Care Document ---
Author Organization [facility] Address [address] [address] [place] [address] Phone Care Team Providers Care Engraver Hand Soft Metals Name Role Phone Roberto Carlos Valenzuela MD [...] OFFICE/OUTPA TIENT VISIT EST [facility], [address] [address], [place], [address], tel:[phone] [facility] Pain in right elbowDegenerat nacho arthritis of finger, right 0 Nicolas Azevedo. [address] [facility], [place], [place], [address]. tel:[phone] OFFICE/OUTPA TIENT VISIT EST [facility], [address] [address], [place], [address], tel:[phone] [facility] Degenerative arthritis of finger, rightPain in right elbow 9 Nicolas Azevedo. [address] [facility], [place], [place], [id number]. tel:[phone] OFFICE/OUTPA TIENT VISIT EST [facility], [address], [address], [place] tel:[phone] [facility] Degenerative arthritis of finger, right 9 Nicolas Azevedo. [address] [place], [place], [id number]. tel:[phone] OFFICE/OUTPA TIENT VISIT EST [facility], [address], [address], [place] tel:[phone] [facility] Left knee pain, unspecified chronicityBody mass index (BMI) 33.0-33.9, adultStatus post left knee replacement 9 Merlyn Ureña. [address] [place], [place], [address]. tel:[phone] OFFICE/OUTPA TIENT VISIT EST [facility], [address], [address], [place] tel:[phone] [facility] Degenerative arthritis of finger, right Feb-0 9 Nicolas Aezvedo. [address] [facility], [place], [place], [address]. tel:[phone] OFFICE/OUTPA TIENT VISIT EST [facility], [address], [address], [place] tel:[phone] [facility] Degenerative arthritis of finger, right 8 Nicolas Azevedo. [address] [facility], [place], [place], [id number]. tel:[phone] OFFICE/OUTPA TIENT VISIT EST [facility], [address] [address], [place], [address], [place] tel:[phone] [facility] Degenerative arthritis of finger, right 7 Nicolas Azevedo. [address] [place], [place], [address]. tel:[phone] OFFICE/OUTPA TIENT VISIT EST [facility], [address], [address], [place] tel:[phone] [facility] Body mass index (BMI) 33.0-33.9, adultDegenerat nacho arthritis of finger, rightOlecranon bursitis of right elbow 7 Nicolas Azevedo. [address] [place], [place], [address]. tel:[phone] OFFICE/OUTPA TIENT VISIT EST [facility], [address] [address], [place], [address], [place] tel:[phone] [facility] Acute pain of right kneeTear of medial meniscus of right knee, current, unspecified tear type, initial encounter 7 Agapito Pagan. [address], [id number]. tel:[phone] OFFICE/OUTPA TIENT VISIT EST [facility], [address], [address], [place] tel:[phone] [facility] Osteoarthrosis , unspecified whether generalized or localized, involving lower legKnee replacement 4 Umairadryankendallrosio Niranjan. [address], [place], [place], [address]. tel:[phone] Referring Provider: Aquilino Barnhart, [address], [place], [address] . tel:[phone] Family History Family Member Type Diagnosis Age At Onset Mother Problem (finding) malignant neoplasm of l maliha Brother Problem (finding) malignant neoplasm of l maliha Immunizations Vaccine Date Status Comments Pneumo (2 yrs or older)(PPV) administered Source: Other Provider Payers Payer name Insurance type Covered constitution party ID Anaa florence(s) Srinath Miranda O OT [id number] Social History Type Description Quantity Date Captured [...]
--- OUTSIDE RECORDS SUMMARY | 2024-08-29 11:19 | XMS_ITS | Clinical Summary ---
Author Organization [facility] Address [address] [place] [address] Care Team Providers Care Chinchilla Farmer Name Role Phone Aquilino Jerry MD Primary Care Provider [phone] Lida Pagan MD Unavailable [phone] Naveen Bueno MD Unavailable [phone] Clark Adams MD Unavailable Allergies No [...] mg tabletIndicatio ns:Chronic systolic heart failure (CMS/HCC) ([facility]),Coronary artery disease involving [place] coronary artery of [place] heart with angina pectoris (HCC),Essential (primary) hypertension,Ac [...] Care Coordination Overview Diagnosis AML, [facility] Floor [address] (9800 service) Treatment Plan Clinical Trial Reason for Admission Fever, fatigue Transplant/IEC Planning BMT/IEC Plan S/p 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 Patient Education Completed Issue to be Resolved Before Discharge Remain afebrile, inc PO Discharge Disposition Home Requests Sent to Case Management and/or Medical Assistants Post-Discharge Follow-Up Living Situation/Distance from [facility], [place] Caregiver , self Lab/Transfusion Frequency Phone: Fax: Venous Access & Care Port and PIV Local Oncologist Contact Phone: Fax: Post-Discharge Office Visit (H30) JFD 02/20 Lab/ROV 03/30 Lab/ROV Miscellaneous Notes: 02/06 Can d/c over w/e if remains afebrile, (-) cx, and increase PO Problem Noted Date Diagnosed Date Agent orange exposure 11/21/2023 Orthostasis 11/21/2023 COVID-19 08/13/2021 Coronary artery disease invo lving [place] coronary artery of [place] heart with angina pectoris 04/16/2021 Overview (04/16/2021): Added automatically from request for surgery [id number] Dyspnea on exertion 04/09/2021 Assessment & Plan (04/09/2021 7:01 PM CDT): The etiology of dyspnea is unclear - his NTproBNP has overall improved and he appears euvolemic on exam. Symptoms improved after thoracentesis but have not resolved. Potentially this is due to obstructive lung disease - he had moderate obstruction on 11/2020 PFTs. We will check LVEDP at time of [facility]. Chronic systolic heart failure (CMS/HCC) 021 Assessment & Plan (04/09/2021 7:02 PM CDT): He appears euvolemic on exam. Recent CMR confirmed reduced LVEF at 30%. Etiology is unclear, though he does have history of doxorubicin chemotherapy and significant risk factors for CAD. We will proceed with [facility] to exclude coronary ischemia. We [...] 08/31/2018 Assessment & Plan (08/31/2018 12:23 AM FACTORY PROCESS WORKERS): At home on metformin 500mg bid. 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 Assessment & Plan (08/31/2018 12:21 AM FACTORY PROCESS WORKERS): Originally diagnosed 01/2017 s/p cisplatin/etoposide, thoracic radiation, [...] simvastatin. Assessment & Plan (08/31/2018 12:23 AM FACTORY PROCESS WORKERS): - continue simvastatin 20mg Assessment & Plan (02/07/2018 3:52 AM CDT): - continue home simvastatin 20 mg qd Essential (primary) hypertension Overview (03/25/2021): Hypertension - (Added by TW Conv) Assessment & Plan (03/25/2021 1:53 PM CDT): BP is adequately controlled. Encounters Date Type Department Care Team Description 08/29/2024 Telephone [facility] Bone Marrow Transplant [address] [place] [phone] Frank Reddy RN 08/29/2024 Telephone [facility] Bone Marrow Transplant [address] [place] [phone] Frank Mcdaniel MD PhD 07/19/2024 Telephone [facility] Bone Marrow Transplant [address] [place] [phone] Emma Joshi V. 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) 04/16/2021 Family [...] on file Legal Sex Male 2:44 AM FACTORY PROCESS WORKERS Gender Identity Not on file Sexual Orientation [...] history exists Medical Devices Implanted Type Area Pyrometer Mechanic Device Identifier Shelf Expiration Date Model / [...] PhD LAB BLOOD ORDERABLES Fin al Result [facility] Department [place] [address] * CT Chest Abdomen Pelvis W Contrast [...] CDT) Cholesterol 146 30 - 199 mg/dL [facility] Comment: Interpretive Data Ages < or [...] revised on 2018. Triglycerides 213(H) <=149 mg/dL [facility] Comment: Interpretive Data Ages < or [...] revised on 2018. HDL 42 >=40 mg/dL [facility] Comment: Interpretive Data Ages < or [...] 2018. LDL, calculated 61 <=129 mg/dL [facility] Comment: Interpretive Data Ages < or = [...] revised on 2018. Non-HDL Cholesterol 104 mg/dL [facility] Comment: Interpretive Data Ages < or = [...] last revised on 2018. Chol/HDL ratio 3 [facility] Blood 09/27/2022 8:08 AM CDT 09/27/2022 8:40 AM CDT Narrative [facility] - 09/27/2022 9:40 AM CDT FASTING repeat lipid panel, cardio onc. us Debra Mallory BIOMEDICAL REPAIR TECHNICIAN LAB BLOOD ORDERABLES Final Resul t [facility] Department of Laboratories [place], [place] [id number] * (ABNORMAL) Hemoglobin A1c (02/06/2021 4:25 AM CDT) Hgb A1C 7.1(H) 4.0 - 5.6 % [facility] Estimated Average Glucose 157 mg/dL [facility] Comment: The ADA recommends reporting an estimated [...] ORDERABLES Fin al Result Performing Organization Address [facility] Co de Phone Number [facility] Department [place] [address] * (ABNORMAL) ALBUMIN / CREATININE URINE RATIO, RANDOM (01/31/2017 3:08 PM CDT) Microalbumin, ur 90.7 mcg/mL [facility] Creatinine, ur 99.10 mg/dL [facility] Microalbumin/c reat ratio 91.5(H) 0.1 - 29.9 mcg/mg Cr [facility] Urine 01/31/2017 3:08 PM CDT 01/31/2017 4:31 PM CDT Lucille Duran LAB BLOOD BANK TEST ORDERABLES F inal Result Performing Organization Address [facility] [[email or web address]] de Phone Number [facility] Department [place] [address] from Last 3 Months or Most Recently Relevant to Health Maintenance Insurance [facility] MEDICARE HMO MEDICARE [facility] [employer] CHOICE MEDICARE O MANAGED MEDICARE GENERIC RISK OTHER [facility] MEDICARE HMO Advance Directives For more information, please contact: [phone] * Full Code (Latest Code Status on [...] 12:17 AM 02/08/2018 7:54 PM Care Teams Chinchilla Farmer Relationship Specialty Start Date End Date Aquilino Jerry MD [address] [facility] [address] [place] [address] PCP - General 10/25/16 Lida Pagan MD [address] [facility] [address] [place] [address] Medical Oncologist/Butcher Scullion Hematology and Oncology 01/10/18 Naveen Bueno MD [address] [facility] [address] [place] [address] Medical Oncologist/Butcher Scullion Hematology and Oncology 01/10/18 Clark Admas MD [address] [facility] [address] [place] [address] Referring Physician Cardiology 05/11/24
--- OUTSIDE RECORDS SUMMARY | 2024-08-29 11:19 | XMS_ITS | Clinical Summary ---
Author Organization [facility] Address [address], [facility] [place] [address] Phone Care Team Providers Care Clinical Quality Assurance Associate Name Role Phone Rosalino Aquilino Barnhart DO Primary Care Provider Fritz Wu DO Unavailable [phone] Amy Boucher GEOPHYSICAL OBSERVER, PERFORMANCE SPECIALIST Unavailable Arlet Eller GEOPHYSICAL OBSERVER, PERFORMANCE SPECIALIST Unavailable Allergies No known active allergies Medications [...] Insurance MEDICARE C [employer] Care Teams Clinical Quality Assurance Associate Relationship Specialty Start Date End Date Aquilino Jerry DO [address] [place] [address] PCP - General Internal Medicine 01/08/16 Fritz Wu DO [address] [place] [address] Gastroenterology 01/22/16 Amy Boucher APRN, PERFORMANCE SPECIALIST [address] [place] [address] Nurse Practitioner Advanced Practice Nurse 01/22/16 Arlet Eller APRN, PERFORMANCE SPECIALIST [address] [place] [address] Nurse Practitioner Advanced Practice Nurse 01/22/16
--- OUTSIDE RECORDS SUMMARY | 2024-08-29 11:19 | XMS_ITS | Referral Summary ---
Author Organization [facility] Address [address] [place] [address] Care Team Providers Care Hoe Worker Name Role Phone Aquilino Jerry MD Primary Care Provider [phone]- [phone] Lida Pagan MD Unavailable Naveen Bueno MD Unavailable [phone] Clark Adams MD Unavailable Encounters Date Type Department Care Team Description 08/29/2024 Telephone [facility] Bone Marrow Transplant [address] [place] [address] [phone] Frank Reddy RN 08/29/2024 Telephone [facility] Bone Marrow Transplant [address] [place] [address] [phone] Frank Mcdaniel MD PhD 07/19/2024 Telephone [facility] Bone Marrow Transplant [address] [place] [address] [phone] Emma Joshi V. 06/12/2024 Telephone [facility] Oncology [address] [place] [address] [phone] Mariama Harden RMA Med Refill from Last [...] heart failure (CMS/HCC) (HCC),Coronary artery disease involving [place] coronary artery of [place] heart with angina pectoris (HCC),Essential (primary) hypertension,Ac [...] Care Coordination Overview Diagnosis AML, SCLC Floor 11511 (9800 service) Treatment Plan Clinical Trial Reason for Admission Fever, fatigue Transplant/IEC Planning BMT/IEC Plan S/p 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 Patient Education Completed Issue to be Resolved Before Discharge Remain afebrile, inc PO Discharge Disposition Home Requests Sent to Case Management and/or Medical Assistants Post-Discharge Follow-Up Living Situation/Distance from [place], [place] Caregiver , self Lab/Transfusion Frequency Phone: Fax: Venous Access & Care Port and PIV Local Oncologist Contact Phone: Fax: Post-Discharge Office Visit (H30) JFIrma 02/20 Lab/ROV 03/30 Lab/ROV Miscellaneous Notes: 02/06 Can d/c over w/e if remains afebrile, (-) cx, and increase PO Problem Noted Date Diagnosed Date Agent orange exposure 11/21/2023 Orthostasis 11/21/2023 COVID-19 08/13/2021 Coronary artery disease invo lving [place] coronary artery of [place] heart with angina pectoris 04/16/2021 Overview (04/16/2021): Added automatically from request for surgery [id number] Dyspnea on exertion 04/09/2021 Assessment & Plan (04/09/2021 7:01 PM CDT): The etiology of dyspnea is unclear - his NTproBNP has overall improved and he appears euvolemic on exam. Symptoms improved after thoracentesis but have not resolved. Potentially this is due to obstructive lung disease - he had moderate obstruction on 11/2020 PFTs. We will check LVEDP at time of [facility]. Chronic systolic heart failure (CMS/HCC) 021 Assessment & Plan (04/09/2021 7:02 PM CDT): He appears euvolemic on exam. Recent CMR confirmed reduced LVEF at 30%. Etiology is unclear, though he does have history of doxorubicin chemotherapy and significant risk factors for CAD. We will proceed with [facility] to exclude coronary ischemia. We will [...] 08/31/2018 Assessment & Plan (08/31/2018 12:23 AM FORMAL WEAR RENTAL CLERK): At home on metformin 500mg bid. 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 Assessment & Plan (08/31/2018 12:21 AM FORMAL WEAR RENTAL CLERK): Originally diagnosed 01/2017 s/p cisplatin/etoposide, thoracic radiation, [...] simvastatin. Assessment & Plan (08/31/2018 12:23 AM FORMAL WEAR RENTAL CLERK): - continue simvastatin 20mg Assessment & Plan [...] on file Legal Sex Male 2:44 AM FORMAL WEAR RENTAL CLERK Gender Identity Not on file Sexual Orientation [...] on file Medical Devices Implanted Type Area Exhibit Designer Device Identifier Shelf Expiration Date Model / [...] ORDERABLES Fin al Result ARMOND AMARAL [facility] Department [place] [address] * CT Chest Abdomen Pelvis W [...] last revised on 2018. Chol/HDL ratio [address] [facility] Blood 09/27/2022 8:08 AM CDT 09/27/2022 8:40 AM CDT Narrative [facility] - 09/27/2022 9:40 AM CDT FASTING repeat lipid panel, cardio onc. Result [facility] Debra Mallory SUPERVISOR MACHINE SETTER LAB BLOOD ORDERABLES Final Resul t Performing Organization Address [facility] de Phone Number [facility] [place] [address] * (ABNORMAL) Hemoglobin A1c (02/06/2021 4:25 AM CDT) Pathologist [facility] Hgb A1C 7.1(H) 4.0 - 5.6 % [facility] Estimated Average Glucose 157 mg/dL [facility] Comment: The ADA recommends reporting an [...] ORDERABLES Fin al Result Performing Organization Address [facility] Co de Phone Number [facility] [place] [address] * (ABNORMAL) ALBUMIN / CREATININE URINE RATIO, RANDOM (01/31/2017 3:08 PM CDT) Pathologist [facility] Microalbumin, ur 90.7 mcg/mL [facility] Creatinine, ur 99.10 mg/dL [facility] Microalbumin/c reat ratio 91.5(H) 0.1 - 29.9 mcg/mg Cr [facility] Urine 01/31/2017 3:08 PM CDT 01/31/2017 4:31 PM CDT Lucille Smithhector Duran LAB BLOOD BANK TEST ORDERABLES F inal Result [facility] Department [place] [address] from Last 3 Months or Most Recently Relevant to Health Maintenance Insurance [employer] MEDICARE HMO MEDICARE FORMERLY [facility] ANTHEM ACCESS Member Subscriber Plan / Payer (Ef fective 2012-Present) Name:Haylee Palmer I Relation to Subscriber:Self Name:HAYLEE PALMER I Payer ID:[id number] (NAIC) Type: [employer] Address: [address] MEDICARE O MANAGED MEDICARE GENERIC RISK OTHER [employer] MEDICARE HMO Advance Directives For more information, please contact: [phone] * Full Code (Latest Code Status on [...] 12:17 AM 02/08/2018 7:54 PM Care Teams Hoe Worker Relationship Specialty Start Date End Date Aquilino Jerry MD [address] [place] [address] PCP - General 10/25/16 Lida Pagan MD [address] [place] [address] Medical Oncologist/Channeler Insole Hematology and Oncology 01/10/18 Naveen Bueno MD [address] [place] [address] Medical Oncologist/Channeler Insole Hematology and Oncology 01/10/18 Clark Adams MD [address] [place] [address] Referring Physician Cardiology 05/11/24
--- OUTSIDE RECORDS SUMMARY | 2024-08-29 11:19 | XMS_ITS | Clinical Summary ---
Author Organization [facility] Address [address] [place] [address] Care Team Providers Care Cold Header Operator Name Role Phone Aquilino Jerry Primary Care Provider Source Comments [facility],non-owned Affiliates and Associated Physician Practices is amultiple site organization consisting of ambulatory clinics and hospital sitesin [place], [place], [place] and [place]. This disclosure is being madepursuant to the Care Everywhere program and may not contain all information available regarding this patient. Last updated 18.[facility] Social History Tobacco Use Types Packs/Day Years [...] age to complete this topic Care Teams Cold Header Operator Relationship Specialty Start Date End Date Aquilino Jerry DO [address] [facility] [address] [place], [place] [id number] PCP - General 12/31/21
--- OUTSIDE RECORDS SUMMARY | 2024-08-29 11:19 | XMS_ITS | Encounter Summary ---
Author Organization [facility] Address [address] [place] [address] Phone Care Team Providers Care Discount Clerk Name Role Phone Aquilino Jerry MD Primary Care Provider [phone]- [phone] Lida Pagan MD Unavailable [phone] Naveen Bueno MD Unavailable [phone] Clark Adams MD Unavailable Encounter Details Date Type Department Care Team (Late st Contact Info) Description 05/18/2024 Telephone [facility] Scheduling [address] [place] [address] Roseanna Rey Social History Tobacco Use Types [...] on file Legal Sex Male 2:44 AM NET APPLICATION SUPPORT SPECIALIST Gender Identity Not on file Sexual [...] documented as of this encounter Care Teams Discount Clerk Relationship Specialty Start Date End Date Aquilino Jerry MD [address] [place] [address] PCP - General 10/25/16 Lida Pagan MD [address] [facility] [address] [place] [address] Medical Oncologist/Senior Java Web Application Developer Hematology and Oncology 01/10/18 Naveen Bueno MD [address] [facility] [address] [place] [address] Medical Oncologist/Senior Java Web Application Developer Hematology and Oncology 01/10/18 Clark Adams MD [address] [facility] [address] [place] [address] Referring Physician Cardiology 05/11/24 documented as of this encounter
--- OUTSIDE RECORDS SUMMARY | 2024-08-29 11:19 | XMS_ITS | Encounter Summary ---
Author Organization [facility] Address [address] [place] [address] Care Team Providers Care Telecom Coordinator Name Role Phone Aquilino Jerry MD Primary Care Provider [phone]- [phone] Lida Pagan MD Unavailable Naveen Bueno MD Unavailable Clark Adams MD Unavailable Encounter Details Date Type Department Care Team (Late st Contact Info) Description 03/10/2020 Telephone [facility] Radiology [facility] [address] [place] [address] Earl Bolanos, RT Social History Tobacco Use Types Packs/Day Years Used Date Smoking Tobacco: Former Cigarettes Smokeless Tobacco: Never Sex and Gender Information Value Date Recorded Sex Assigned at Not on file Legal Sex Male 2:44 AM MUSIC ARTIST Gender Identity Not on file Sexual Orientation Not on file documented as of this encounter Plan of Treatment Not on file documented as of this encounter Visit Diagnoses Not on filedocumented in this encounter Additional Health Concerns Infection Onset Date Last Indicated Resolved Time COVID: Suspected 02/05/2021 02/05/2021 02/05/2021 3:59 PM CDT COVID: Suspected 08/12/2021 08/12/2021 08/12/2021 12:56 PM MUSIC ARTIST COVID: Suspected 08/12/2021 08/12/2021 08/12/2021 8:34 PM MUSIC ARTIST COVID19 08/12/2021 08/12/2021 08/22/2021 3:05 AM MUSIC ARTIST COVID: Recovered Comment:Added based on recent COVID infection. 08/22/2021 08/30/2021 12/20/2021 3:05 AM C DT documented as of this encounter Care Teams Telecom Coordinator Relationship Specialty Start Date End Date Aquilino Jerry MD [address] [place] [address] PCP - General 10/25/16 Lida Pagan MD [address] [facility] [address] [place] [address] Medical Oncologist/Director Of Math Hematology and Oncology 01/10/18 Naveen Bueno MD [address] [place] [address] Medical Oncologist/Director Of Math Hematology and Oncology 01/10/18 Clark Adams MD [address] [facility] [address] [place] [address] Referring Physician Cardiology 05/11/24 documented as of this encounter
--- OUTSIDE RECORDS SUMMARY | 2024-08-29 11:19 | XMS_ITS | Encounter Summary ---
Author Organization [facility] Address [address] [place] [address] Care Team Providers Care Dump Motorman Name Role Phone Aquilino Jerry DO Primary Care Provider [phone]- [phone] Encounter Details Date Type Department Care Team (Late st Contact Info) Description 04/14/2018 Lab Requisition [facility] Care DermPath Lab [address] [facility] [place] [address] Vladimir Eduardo MD [address] [place] [address] Social History Tobacco Use Types [...] AM CDT) Case Report Dermatopathology Report Case: [id number] Authorizing Provider: Vladimir Eduardo MD Collected: 04/13/2018 [...] proven BCC, superficial multifocal, eroded. Previous Bx: [id number]. 10:06 AM [facility] Gross Description Specimen A: Received is one formalin filled container labeled with the patient's name and designated left aguirre. The specimen consists of a curettage and desiccation biopsy (2 pieces) measuring [id number] & [id number]. Jar 0+. 10:06 AM [facility]ERMAT[facility]OR[facility] Microscopic Description Specimen A. SKIN, [...] the margin of the specimen. 10:06 AM [facility]OR[facility] Disclaimer An external and internal positive and negative controls are appropriate for the histochemical, immunohistochemical and immunofluorescence stain(s) in this case (if any), except where stated explicitly. The performance characteristics of the stain(s) cited in this report were developed and its performance characteristic determined by the Dermatopathology Laboratory at [facility]. These tests need not be, and therefore are not, approved by the [place] Food and Drug Administration. The tests are used for clinical purposes. Billing Codes Specimen Charges Stain Charges 39088 1 10:06 AM T DERMATOPATHOLOGY LABORATORY Embedded Images 10:06 AM [facility]MAT[facility] Pathology/Cytolog y TISSUE SPECIMEN FROM SKIN / Unknown 04/13/2018 04/14/2018 11:35 AM T Vladimir Eduardo MD LAB - PATHOLOGY/CYTO LOGY ORDERABLES DERMATOPATHOLOGY LABORATORY [facility] - Department of Dermatology [address] [place] [address], 5th [place] [address], [facility] [phone] documented in this encounter Visit Diagnoses Not on filedocumented in this encounter Care Teams Dump Motorman Relationship Specialty Start Date End Date Aquilino Jerry DO [address] [facility] [address] [facility] [address] [place] [address] PCP - General 12/31/21 documented as of this encounter
--- OUTSIDE RECORDS SUMMARY | 2024-08-29 11:19 | XMS_ITS ---
Author Organization [facility] Address [address] [place] [address] Care Team Providers Care Vehicle Body Sander Name Role Phone Aquilino Jerry MD Primary Care Provider [phone]- [phone] Lida Pagan MD Unavailable Naveen Bueno MD Unavailable [phone] Clark Adams MD Unavailable Active Problems Patient Care Coordination No te Formatting of this note is d ifferent from the original. 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 Patient Education Completed Issue to be Resolved Before Discharge Remain afebrile, inc PO Discharge Disposition Home Requests Sent to Case Management and/or Medical Assistants Post-Discharge Follow-Up Living Situation/Distance from [place], [place] Caregiver , self Lab/Transfusion Frequency Phone: Fax: Venous Access & Care Port and PIV Local Oncologist Contact Phone: Fax: Post-Discharge Office Visit (H30) JFD 02/20 Lab/ROV 03/30 Lab/ROV Miscellaneous Notes: 02/06 Can d/c over w/e if remains afebrile, (-) cx, and increase PO Problem Noted Date Diagnosed Date Agent orange exposure 11/21/2023 Orthostasis 11/21/2023 COVID-19 08/13/2021 Coronary artery disease invo lving [place] coronary artery of [place] heart with angina pectoris 04/16/2021 Overview (04/16/2021): Added automatically from request for surgery [id number] Dyspnea on exertion 04/09/2021 Assessment & Plan (04/09/2021 7:01 PM CDT): The etiology of dyspnea is unclear - his NTproBNP has overall improved and he appears euvolemic on exam. Symptoms improved after thoracentesis but have not resolved. Potentially this is due to obstructive lung disease - he had moderate obstruction on 11/2020 PFTs. We will check LVEDP at time of [facility]. Chronic systolic heart failure (CMS/HCC) 021 Assessment & Plan (04/09/2021 7:02 PM CDT): He appears euvolemic on exam. Recent CMR confirmed reduced LVEF at 30%. Etiology is unclear, though he does have history of doxorubicin chemotherapy and significant risk factors for CAD. We will proceed with [facility] to exclude coronary ischemia. We will [...] 08/31/2018 Assessment & Plan (08/31/2018 12:23 AM TRACTOR OPERATOR LASER LEVELING): At home on metformin 500mg bid. 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 Assessment & Plan (08/31/2018 12:21 AM TRACTOR OPERATOR LASER LEVELING): Originally diagnosed 01/2017 s/p cisplatin/etoposide, thoracic radiation, [...] simvastatin. Assessment & Plan (08/31/2018 12:23 AM TRACTOR OPERATOR LASER LEVELING): - continue simvastatin 20mg Assessment & Plan [...]
--- OUTSIDE RECORDS SUMMARY | 2024-08-29 11:19 | XMS_ITS | Encounter Summary ---
Author Organization [facility] Address [address] [place] [address] Phone Care Team Providers Care Filter Press Tender Name Role Phone Aquilino Jerry MD Primary Care Provider +1- [phone] Lida Pagan MD Unavailable Naveen Bueno MD Unavailable Clark Adams MD Unavailable Encounter Details Date Type Department Care Team (Late st Contact Info) Description 08/29/2024 Telephone [facility] Bone Marrow Transplant [address] [facility] [address] [place] [address] Frank Mcdaniel MD PhD [address] DIV IM BONE MARROW TRANSPLANT, [address] [place] [address] Social History Tobacco Use Types [...] file Legal Sex Male 2:44 AM SENIOR PEOPLESOFT DEVELOPER Gender Identity Not on file Sexual Orientation Not on file documented as of this encounter Miscellaneous Notes * Telephone Encounter - Frank Reddy RN - 08/29/2024 9:37 AM CST Called twice with no answer, left VM, advised to go to the ED for SOB and severe pain on right sidefor work up. Left call back number. OR PEOPLESOFT DEVELOPER * Telephone Encounter - Stacy Landis - 08/29/2024 9:18 AM CST calling as patient is SOB and has severe pain on his right side. OR PEOPLESOFT DEVELOPER documented in this encounter Plan of Treatment Not on file documented as of this encounter Visit Diagnoses Not on filedocumented in this encounter Care Teams Filter Press Tender Relationship Specialty Start Date End Date Aquilino Jerry MD [address] [place] [address] PCP - General 10/25/16 Lida Pagan MD [address] [facility] [address] [place] [address] Medical Oncologist/Roll Icer Hematology and Oncology 01/10/18 Naveen Bueno MD [address] [facility] [address] [place] [address] Medical Oncologist/Roll Icer Hematology and Oncology 01/10/18 Clark Adams MD [address] [facility] [address] [place] [address] Referring Physician Cardiology 05/11/24 documented as of this encounter
[2024-08-29 11:23] LABS: Influenza A QL RT-PCR Negative (Negative); Influenza B QL RT-PCR Negative (Negative); RSV RNA, RT-PCR Negative (Negative); SARS-CoV-2 RNA PCR Negative (Negative)
[2024-08-29] MEDS: SODIUM CHLORIDE 0.9% IV 1,000 ML 999 ML IV CONT (11:51)
--- NOTE | 2024-08-29 11:52 | PC.NURSE ---
Patient's Bp noted to be trending down. Provider aware and order fro NS bolus to be given. Patient denies symptoms at this time with hypotension.
--- NOTE | 2024-08-29 12:59 | PC.NURSE ---
Patient taken off 2L oxygen to get a room air challenge SAT.
--- NOTE | 2024-08-29 13:02 | PC.NURSE ---
patient O2 went to 89% on room air. patient placed back on 2L NC. Provider aware
--- NOTE | 2024-08-29 13:09 | PC.NURSE ---
Provider aware of patient failing room air trial and needing to be placed back on 2L oxygen
== END 2024-08-29 15:00 | disposition home or self-care (01) ==
PROVIDERS: Emergency Provider Emergency Medicine; PCP Internal Medicine
DX: R09.02 Hypoxemia (principal); R07.89 Other chest pain; Z20.822 Contact with and (suspected) exposure to COVID-19; I50.9 Heart failure, unspecified; E11.9 Type 2 diabetes mellitus without complications; J44.9 Chronic obstructive pulmonary disease, unspecified; G47.33 Obstructive sleep apnea (adult) (pediatric); K22.70 Barrett's esophagus without dysplasia; Z96.652 Presence of left artificial knee joint; Z85.118 Personal history of other malignant neoplasm of bronchus and lung; Z85.6 Personal history of leukemia; Z87.891 Personal history of nicotine dependence; Z79.82 Long term (current) use of aspirin; Z79.01 Long term (current) use of anticoagulants; Z79.84 Long term (current) use of oral hypoglycemic drugs; Z79.899 Other long term (current) drug therapy; R00.0 Tachycardia, unspecified; I44.4 Left anterior fascicular block; R94.31 Abnormal electrocardiogram [ECG] [EKG]
CPT/HCPCS: 36415; 71046; 80053; 83880; 84484; 85025; 87637; 93005; 94640; 96361; 96374; 99284; J2270; J7030